=== PATIENT | female | born 1955 | race Caucasian/White ===

== ENCOUNTER 2018-05-03 15:34 | Emergency (ER) | payer MEDICAID ==
[~2018-05-03] VITALS: Ht 152.4 cm; Wt 52.7 kg
[2018-05-03 15:44] VITALS: BP 162/92
[2018-05-03] MEDS ORDERED: albuterol 2.5 MG/3 ML nebule NEB STA (17:31)
--- NOTE | 2018-05-03 17:32 | NUR ---
PAGED RT FOR BREATHING TX.
[2018-05-03] MEDS ORDERED: ALBU8HFA PO (17:43)
[2018-05-03] MEDS ORDERED: albuterol 2.5 MG/3 ML nebule NEB ONE (19:05)
--- NOTE | 2018-05-03 19:25 | NUR ---
PT DC'D HOME, WHEEZES BILATERALLY, "I FEEL MUCH BETTER AND AM READY TO GO HOME",
== END 2018-05-03 19:29 | disposition home or self-care (01) ==
LOC: ER 15:34
DX: J02.9 Acute pharyngitis, unspecified (principal); J32.9 Chronic sinusitis, unspecified; I25.10 Atherosclerotic heart disease of native coronary artery without angina pectoris; J45.909 Unspecified asthma, uncomplicated; Z88.1 Allergy status to other antibiotic agents; Z88.5 Allergy status to narcotic agent; Z91.018 Allergy to other foods; Z91.011 Allergy to milk products; Z88.8 Allergy status to other drugs, medicaments and biological substances; Z79.899 Other long term (current) drug therapy; Z87.891 Personal history of nicotine dependence
CPT/HCPCS: 94640; 94760; 99283

== ENCOUNTER 2018-07-23 13:01 | Emergency (ER) | payer MEDICAID ==
[~2018-07-23] VITALS: Ht 154.9 cm; Wt 53.0 kg
[2018-07-23] MEDS ORDERED: LIDOcaine 1% w/epiNEPHrine 1:200,000 30ml vial IM ONE (19:05)
[2018-07-23] MEDS ORDERED: LIDOcaine/epinephrine TOPICAL 5 ML BTL TOP ONE (19:30)
--- NOTE | 2018-07-23 19:54 | NUR ---
LET APPLIED TO ABSCESS LEFT LABIA
[2018-07-23] MEDS ORDERED: HYDROcodone/acetaminophen 10/325mg tab PO ONE (21:40)
[2018-07-23] MEDS ORDERED: sulfamethoxazole/trimethoprim DS (800/160mg) tablet PO ONE (21:40)
[2018-07-23] MEDS ORDERED: HYDR-4353 PO (21:42)
[2018-07-23] MEDS ORDERED: SULF1TAB49 PO (21:42)
[2018-07-23 21:46] VITALS: BP 147/99
== END 2018-07-23 21:57 | disposition home or self-care (01) ==
LOC: ER 13:01
DX: N76.4 Abscess of vulva (principal); I10 Essential (primary) hypertension; I25.10 Atherosclerotic heart disease of native coronary artery without angina pectoris; J45.909 Unspecified asthma, uncomplicated; E03.9 Hypothyroidism, unspecified; Z88.8 Allergy status to other drugs, medicaments and biological substances; Z88.1 Allergy status to other antibiotic agents; Z88.6 Allergy status to analgesic agent; Z91.018 Allergy to other foods; Z79.899 Other long term (current) drug therapy; Z91.011 Allergy to milk products
CPT/HCPCS: 56405; 99284; J3490

== ENCOUNTER 2020-12-12 15:54 | Emergency (ER) | payer MEDICAID ==
[~2020-12-12] VITALS: Ht 152.4 cm; Wt 53.6 kg
[2020-12-12] MEDS ORDERED: ketorolac tromethamine 15mg/ml inj. IV ONE (18:50)
[2020-12-12] MEDS ORDERED: HYDROcodone/acetaminophen 5mg/325mg tablet PO ONE (18:50)
[2020-12-12] MEDS ORDERED: IBUP-1984 PO (19:31)
[2020-12-12 20:09] VITALS: BP 140/71
== END 2020-12-12 20:10 | disposition home or self-care (01) ==
LOC: ER 15:55
DX: M25.552 Pain in left hip (principal); M54.9 Dorsalgia, unspecified; I25.10 Atherosclerotic heart disease of native coronary artery without angina pectoris; I10 Essential (primary) hypertension; J45.909 Unspecified asthma, uncomplicated; E03.9 Hypothyroidism, unspecified; Z91.011 Allergy to milk products; Z88.1 Allergy status to other antibiotic agents; Z88.5 Allergy status to narcotic agent; Z91.018 Allergy to other foods; Z88.8 Allergy status to other drugs, medicaments and biological substances
CPT/HCPCS: 72131; 72192; 73502; 73552; 96374; 99285; J1885

== ENCOUNTER → 2020-12-23 | Emergency (ER) | payer MEDICAID ==
[~2020-12-23] VITALS: Ht 152.4 cm; Wt 53.6 kg
[~2020-12-23] MED LIST: SULF1TAB49 PO
[2020-12-23 18:00] VITALS: BP 126/100
--- NOTE | 2020-12-23 19:05 | NUR ---
PT SEEN AND DC'D BY PROVIDER PRIOR TO HEAD TO TOE ASSESSMENT. SAFE DC
== END | disposition home or self-care (01) ==
LOC: ER 17:44
DX: L03.116 Cellulitis of left lower limb (principal); I25.10 Atherosclerotic heart disease of native coronary artery without angina pectoris; I10 Essential (primary) hypertension; J45.909 Unspecified asthma, uncomplicated; E03.9 Hypothyroidism, unspecified; Z88.8 Allergy status to other drugs, medicaments and biological substances; Z88.1 Allergy status to other antibiotic agents; Z88.5 Allergy status to narcotic agent; Z91.018 Allergy to other foods; Z79.899 Other long term (current) drug therapy
CPT/HCPCS: 99283

== ENCOUNTER 2021-09-01 22:27 | Emergency (ER) | payer MEDICAID ==
[~2021-09-01] VITALS: Ht 152.4 cm; Wt 45.9 kg
[2021-09-01 23:04] LABS: BASOPHILS % (AUTO) 0.2 % (0-1); EOSINOPHILS # (AUTO) 0.2 X10'3 (0-0.9); EOSINOPHILS % (AUTO) 1.9 % (0-6); HEMATOCRIT 34.6 % (35.0-45.0); HEMOGLOBIN 12.3 g/dl (12.0-16.0); LYMPHOCYTES # (AUTO) 1.2 X10'3 (1.1-4.8); LYMPHOCYTES % (AUTO) 14.4 % (21-51); MEAN CORPUSCULAR HEMOGLOBIN 37.2 PG (27.0-31.0); MEAN CORPUSCULAR HGB CONC 35.5 g/dL (33.0-36.5); MEAN CORPUSCULAR VOLUME 104.5 FL (78-98); MEAN PLATELET VOLUME 7.1 FL (7.4-10.4); MONOCYTES # (AUTO) 0.3 X10'3 (0-0.9); MONOCYTES % (AUTO) 3.8 % (2-12); NEUTROPHILS # (AUTO) 6.5 X10'3 (1.8-7.7); NEUTROPHILS % (AUTO) 79.7 % (42-75); PLATELET COUNT 306 X10'3 (140-440); RED BLOOD COUNT 3.31 X10'6 (4.20-5.60); RED CELL DISTRIBUTION WIDTH 16.4 % (11.5-14.5); WHITE BLOOD COUNT 8.1 X10'3 (4.5-11.0)
[2021-09-01 23:22] LABS: ALANINE AMINOTRANSFERASE 14 U/L (12-78); ALBUMIN 3.8 G/DL (3.4-5.0); ALBUMIN/GLOBULIN RATIO 0.9 (1.1-1.5); ALKALINE PHOSPHATASE 132 IU/L (46-116); ANION GAP 10 (8-16); ASPARTATE AMINO TRANSFERASE 16 U/L (10-37); BILIRUBIN,TOTAL 0.9 MG/DL (0.1-1.0); BLOOD UREA NITROGEN 16 MG/DL (7-18); BUN/CREATININE RATIO 15.1 (6.6-38.0); CALCIUM 9.1 MG/DL (8.5-10.1); CHLORIDE 102 MMOL/L (99-107); CREATININE 1.06 MG/DL (0.40-0.90); GLUCOSE 103 MG/DL (70-104); POTASSIUM 3.3 MMOL/L (3.5-5.1); SODIUM 138 MMOL/L (135-145); TOTAL CARBON DIOXIDE 25.6 MMOL/L (24-32); eGFR 52 ML/MIN
[2021-09-02 00:56] LABS: D-DIMER 1.42 MG/L FEU (0-0.50)
[2021-09-02] MEDS ORDERED: acetaminophen 325mg tablet PO ONE (01:10)
[2021-09-02] MEDS ORDERED: iohexol 300mg/ml 100ml inj. ONE (01:15)
[2021-09-02 05:12] VITALS: BP 114/67
== END 2021-09-02 06:51 | disposition home or self-care (01) ==
LOC: ER 22:28
DX: R06.02 Shortness of breath (principal); Z20.822 Contact with and (suspected) exposure to COVID-19; R07.89 Other chest pain; I25.10 Atherosclerotic heart disease of native coronary artery without angina pectoris; I10 Essential (primary) hypertension; J42 Unspecified chronic bronchitis; J45.909 Unspecified asthma, uncomplicated; E03.9 Hypothyroidism, unspecified; Z88.8 Allergy status to other drugs, medicaments and biological substances; Z88.2 Allergy status to sulfonamides; Z88.5 Allergy status to narcotic agent; Z91.018 Allergy to other foods; Z91.011 Allergy to milk products
CPT/HCPCS: 36415; 71045; 71275; 80053; 83880; 84484; 85025; 85379; 87502; 87503; 87635; 93005; 99285; C9803; Q9967

== ENCOUNTER 2021-11-16 08:25 | Outpatient (CLI) | payer MEDICAID ==
[~2021-11-16] VITALS: Ht 152.4 cm; Wt 49.4 kg
[2021-11-16 09:04] LABS: TOTAL HEMOGLOBIN 14.8 G/dl (12.0-16.0)
[2021-11-16] MEDS ORDERED: albuterol 2.5 MG/3 ML nebule NEB PRN (09:55)
== END 2021-11-16 23:59 | disposition home or self-care (01) ==
LOC: RT 08:25
PROVIDERS: ATTEND Nurse Practitioner Family
DX: R06.02 Shortness of breath (principal); Z87.891 Personal history of nicotine dependence; Z79.899 Other long term (current) drug therapy
CPT/HCPCS: 85018; 94060; 94727; 94729; 94760

== ENCOUNTER 2023-03-07 17:02 | Emergency (ER) | payer OTHER, MEDICAID ==
[~2023-03-07] VITALS: Ht 149.9 cm; Wt 57.3 kg
[~2023-03-07 17:02] MED LIST changes: +ALBU17AE26 PO; +BUDE10.26 PO; +ESCI-8 PO; +HYOS-27 SL; +IBUP-2697 PO; +LEVO75TA7 PO; +LOSA25TA41 PO; -SULF1TAB49 PO
[2023-03-07 17:10] VITALS: TEMP 97.9
[2023-03-07] MEDS ORDERED: albuterol 2.5 MG/3 ML nebule NEB ONE (17:15)
--- NOTE | 2023-03-07 17:27 | NUR ---
RT AT BEDSIDE TO ADMINISTER BREATHING TREATMENT PER MD ORDER (SEE EMAR).
[2023-03-07 17:28] VITALS: PULSE 94; RESP 22; O2SAT 97
[2023-03-07 17:36] VITALS: PULSE 101; RESP 24; O2SAT 98
[2023-03-07 18:29] LABS: BASOPHILS % (AUTO) 0.7 % (0-1); EOSINOPHILS # (AUTO) 0.1 X10'3 (0-0.9); EOSINOPHILS % (AUTO) 1.4 % (0-6); HEMATOCRIT 35.6 % (35.0-45.0); HEMOGLOBIN 12.2 g/dl (12.0-16.0); LYMPHOCYTES # (AUTO) 1.3 X10'3 (1.1-4.8); MEAN CORPUSCULAR HEMOGLOBIN 34.3 PG (27.0-31.0); MEAN CORPUSCULAR HGB CONC 34.4 g/dL (33.0-36.5); MEAN CORPUSCULAR VOLUME 99.6 FL (78-98); MEAN PLATELET VOLUME 6.6 FL (7.4-10.4); MONOCYTES # (AUTO) 0.2 X10'3 (0-0.9); NEUTROPHILS % (AUTO) 74.9 % (42-75); PLATELET COUNT 417 X10'3 (140-440); RED BLOOD COUNT 3.57 X10'6 (4.20-5.60); RED CELL DISTRIBUTION WIDTH 20.3 % (11.5-14.5); WHITE BLOOD COUNT 6.6 X10'3 (4.5-11.0)
[2023-03-07 18:30] LABS: ALANINE AMINOTRANSFERASE 16 U/L (12-78); ALBUMIN 3.5 G/DL (3.4-5.0); ALBUMIN/GLOBULIN RATIO 0.8 (1.1-1.5); ALKALINE PHOSPHATASE 143 IU/L (46-116); ANION GAP 11 (8-16); ASPARTATE AMINO TRANSFERASE 14 U/L (10-37); BILIRUBIN,TOTAL 0.8 MG/DL (0.1-1.0); BLOOD UREA NITROGEN 12 MG/DL (7-18); BUN/CREATININE RATIO 10.6 (10.0-20.0); CHLORIDE 102 MMOL/L (99-107); CREATININE 1.13 MG/DL (0.40-0.90); GLUCOSE 95 MG/DL (70-104); POTASSIUM 3.7 MMOL/L (3.5-5.1); SODIUM 137 MMOL/L (135-145); TOTAL PROTEIN 7.8 G/DL (6.4-8.2); eCRCL 34 ML/MIN; eGFR 48 ML/MIN
[2023-03-07 18:59] LABS: ANISOCYTOSIS 3+; PLATELET ESTIMATE NORMAL
[2023-03-07] MEDS ORDERED: ringers solution, lactated 1000ml IV soln IV ONE (19:15)
[2023-03-07] MEDS ORDERED: iohexol 350MG/ML 100ml bottle IV ONE (19:41)
[2023-03-07 21:21] LABS: BILIRUBIN,URINE NEGATIVE (Neg); CLARITY,URINE SLIGHTLY CLOUDY (Clear); COLOR,URINE YELLOW (Yellow); GLUCOSE, URINE NEGATIVE (Neg); KETONES,URINE NEGATIVE (Neg); LEUKOCYTE ESTERASE ,URINE NEGATIVE (Neg); NITRITES, URINE NEGATIVE (Neg); OCCULT BLOOD,URINE NEGATIVE (Neg); PROTEIN,URINE NEGATIVE (Neg)
[2023-03-07 21:33] LABS: UA COLLECTION TYPE CLN CATCH MIDSTREAM
[2023-03-07 21:35] LABS: BACTERIA,URINE FEW /HPF (Neg); MUCUS STRANDS NONE SEEN /LPF (Neg); RBC,URINE 0-2 /HPF (0-2); SQUAMOUS EPITHELIAL CELL,UR FEW /LPF (FEW); WBC,URINE 0-4 /HPF (0-4)
[2023-03-07 23:12] VITALS: BP 124/72; PULSE 80; RESP 16; O2SAT 92
== END 2023-03-07 23:16 | disposition home or self-care (01) ==
LOC: ER 17:02
DX: J44.1 Chronic obstructive pulmonary disease with (acute) exacerbation (principal); I11.0 Hypertensive heart disease with heart failure; E03.9 Hypothyroidism, unspecified; F32.A Depression, unspecified; Z91.040 Latex allergy status; Z88.8 Allergy status to other drugs, medicaments and biological substances; Z79.899 Other long term (current) drug therapy; Z88.1 Allergy status to other antibiotic agents
CPT/HCPCS: 36415; 71045; 71275; 74177; 80053; 81001; 83605; 84145; 85008; 85025; 87040; 93005; 94640; 96360; 99285; J3490; J7120; Q9967; 94760; A4615

== ENCOUNTER 2023-03-22 08:31 | Inpatient (IN) | payer OTHER, MEDICAID ==
[~2023-03-22] VITALS: Ht 149.9 cm; Wt 54.9 kg
[2023-03-22 09:12] LABS: ALANINE AMINOTRANSFERASE 22 U/L (12-78); ALBUMIN 3.5 G/DL (3.4-5.0); ALBUMIN/GLOBULIN RATIO 0.9 (1.1-1.5); ALKALINE PHOSPHATASE 130 IU/L (46-116); ANION GAP 8 (8-16); ASPARTATE AMINO TRANSFERASE 22 U/L (10-37); BILIRUBIN,TOTAL 0.9 MG/DL (0.1-1.0); BLOOD UREA NITROGEN 10 MG/DL (7-18); BUN/CREATININE RATIO 11.4 (10.0-20.0); CHLORIDE 105 MMOL/L (99-107); CREATININE 0.88 MG/DL (0.40-0.90); GLUCOSE 112 MG/DL (70-104); SODIUM 137 MMOL/L (135-145); TOTAL CARBON DIOXIDE 23.7 MMOL/L (24-32); TOTAL PROTEIN 7.2 G/DL (6.4-8.2); eCRCL 43 ML/MIN; eGFR 64 ML/MIN
[2023-03-22 09:19] LABS: PRO BRAIN NATRIURETIC PEPTIDE 104 PG/ML (0-125)
[2023-03-22] MEDS ORDERED: ketorolac trometh. 30mg/ml inj. IM ONE (09:40)
[2023-03-22 10:53] LABS: D-DIMER 7.51 MG/L FEU (0-0.50)
[2023-03-22 11:07] LABS: PRO BRAIN NATRIURETIC PEPTIDE 126 PG/ML (0-125)
[2023-03-22 11:43] LABS: BASOPHILS % (AUTO) 0.3 % (0-1); EOSINOPHILS # (AUTO) 0.1 X10'3 (0-0.9); EOSINOPHILS % (AUTO) 0.8 % (0-6); HEMOGLOBIN 11.5 g/dl (12.0-16.0); LYMPHOCYTES # (AUTO) 0.7 X10'3 (1.1-4.8); LYMPHOCYTES % (AUTO) 7.7 % (21-51); MEAN CORPUSCULAR HEMOGLOBIN 34.6 PG (27.0-31.0); MEAN CORPUSCULAR HGB CONC 33.9 g/dL (33.0-36.5); MEAN CORPUSCULAR VOLUME 102.1 FL (78-98); MEAN PLATELET VOLUME 6.8 FL (7.4-10.4); MONOCYTES # (AUTO) 0.3 X10'3 (0-0.9); MONOCYTES % (AUTO) 2.8 % (2-12); NEUTROPHILS # (AUTO) 7.9 X10'3 (1.8-7.7); NEUTROPHILS % (AUTO) 88.4 % (42-75); PLATELET COUNT 377 X10'3 (140-440); RED BLOOD COUNT 3.33 X10'6 (4.20-5.60); RED CELL DISTRIBUTION WIDTH 21.9 % (11.5-14.5); WHITE BLOOD COUNT 8.9 X10'3 (4.5-11.0)
[2023-03-22] MEDS ORDERED: normal saline 500ml IV soln 500 ML IV ONE (12:00)
[2023-03-22] MEDS ORDERED: iohexol 350MG/ML 100ml bottle IV ONE (12:19)
[2023-03-22 12:38] LABS: ANISOCYTOSIS 3+; PLATELET ESTIMATE NORMAL; ROULEAUX 1+
[2023-03-22] MEDS ORDERED: enoxaparin 100mg/ml syringe SUBCUT ONE (14:25)
[2023-03-22] MEDS ORDERED: magnesium 4gm in 100ml NS 100 ML IV PRN (14:30)
[2023-03-22] MEDS ORDERED: magnesium Cl slow-release 64mg tablet PO PRN (14:30)
[2023-03-22] MEDS ORDERED: potassium Cl 20 mEq SR tablet PO PRN (14:30)
[2023-03-22] MEDS ORDERED: magnesium 2GM in 50ml NS 50 ML IV PRN (14:30)
[2023-03-22] MEDS ORDERED: potassium Cl 40MEQ/1/2NS 520ml 520 ML IV PRN (14:30)
[2023-03-22] MEDS ORDERED: acetaminophen 325mg tablet PO PRN ×2 (14:30)
[2023-03-22] MEDS ORDERED: heparin 10,000 units/1 ML INJ IV ONE (14:40)
[2023-03-22] MEDS: heparin 25,000 UNIT/250ml bag 250 ML IV PRN (15:36)
[2023-03-22] MEDS: normal saline 1000ml 1,000 ML IV SCH (15:38)
[2023-03-22] MEDS ORDERED: albuterol 2.5 MG/3 ML nebule NEB PRN (15:55)
[2023-03-22] MEDS: methylPREDNISolone sod succ/PF 40mg inj. IV SCH (19:29)
[2023-03-22] MEDS ORDERED: ALEN70TA80 PO (19:35)
[2023-03-22] MEDS ORDERED: LEVO50TA8 PO (19:35)
[2023-03-22] MEDS ORDERED: guaiFENesin 200 MG/10 ML oral syrup UD cup PO ONE (19:40)
[2023-03-22] MEDS ORDERED: ipratropium/albuterol 3ml nebule NEB PRN (19:40)
[2023-03-22] MEDS: HYDROcodone/acetaminophen 5mg/325mg tablet PO PRN (20:26)
[2023-03-22 21:10] VITALS: PULSE 92; RESP 16; O2SAT 92
[2023-03-22 21:17] VITALS: PULSE 94; RESP 16
[2023-03-22 21:40] VITALS: BP 133/67; PULSE 102; RESP 20; TEMP 97.2; O2SAT 95
[2023-03-22 23:00] VITALS: RESP 20; O2SAT 95
[2023-03-23] VITALS (9 sets, daily range): BP systolic 93–151; BP diastolic 42–86; PULSE 57–100; RESP 11–18; TEMP 97–99.1; O2SAT 93–97
[2023-03-23] MEDS: HYDROcodone/acetaminophen 5mg/325mg tablet PO PRN ×2 (05:50→17:13)
[2023-03-23 07:28] LABS: BASOPHILS % (AUTO) 0.2 % (0-1); EOSINOPHILS % (AUTO) 0 % (0-6); HEMATOCRIT 31.1 % (35.0-45.0); HEMOGLOBIN 10.5 g/dl (12.0-16.0); LYMPHOCYTES # (AUTO) 0.7 X10'3 (1.1-4.8); LYMPHOCYTES % (AUTO) 4.9 % (21-51); MEAN CORPUSCULAR HEMOGLOBIN 34.7 PG (27.0-31.0); MEAN CORPUSCULAR HGB CONC 33.7 g/dL (33.0-36.5); MEAN CORPUSCULAR VOLUME 102.8 FL (78-98); MEAN PLATELET VOLUME 7.1 FL (7.4-10.4); MONOCYTES # (AUTO) 0.1 X10'3 (0-0.9); MONOCYTES % (AUTO) 0.7 % (2-12); NEUTROPHILS # (AUTO) 12.7 X10'3 (1.8-7.7); NEUTROPHILS % (AUTO) 94.2 % (42-75); PLATELET COUNT 366 X10'3 (140-440); RED BLOOD COUNT 3.03 X10'6 (4.20-5.60); RED CELL DISTRIBUTION WIDTH 22.1 % (11.5-14.5); WHITE BLOOD COUNT 13.4 X10'3 (4.5-11.0)
[2023-03-23 07:53] LABS: ALANINE AMINOTRANSFERASE 20 U/L (12-78); ALBUMIN/GLOBULIN RATIO 0.8 (1.1-1.5); ALKALINE PHOSPHATASE 123 IU/L (46-116); ANION GAP 9 (8-16); ASPARTATE AMINO TRANSFERASE 17 U/L (10-37); BILIRUBIN,TOTAL 0.7 MG/DL (0.1-1.0); BLOOD UREA NITROGEN 13 MG/DL (7-18); BUN/CREATININE RATIO 13.8 (10.0-20.0); CALCIUM 8.6 MG/DL (8.5-10.1); CHLORIDE 104 MMOL/L (99-107); CREATININE 0.94 MG/DL (0.40-0.90); GLUCOSE 161 MG/DL (70-104); POTASSIUM 3.6 MMOL/L (3.5-5.1); SODIUM 137 MMOL/L (135-145); TOTAL CARBON DIOXIDE 24.5 MMOL/L (24-32); TOTAL PROTEIN 6.9 G/DL (6.4-8.2); eCRCL 40 ML/MIN; eGFR 60 ML/MIN
[2023-03-23] MEDS: methylPREDNISolone sod succ/PF 40mg inj. IV SCH ×2 (07:59→20:18)
[2023-03-23] MEDS ORDERED: HYDROcodone/acetaminophen 10/325mg tab PO PRN (09:15)
[2023-03-23] MEDS ORDERED: non-formulary drug (Alendronate Sodium 1 TAB) PO SCH (15:25)
[2023-03-23] MEDS: heparin 25,000 UNIT/250ml bag 250 ML IV PRN (17:10)
[2023-03-24] VITALS (10 sets, daily range): BP systolic 111–141; BP diastolic 61–74; PULSE 64–79; RESP 12–18; TEMP 97.5–98.4; O2SAT 93–97
[2023-03-24] MEDS: heparin 10,000 units/1 ML INJ IV PRN ×2 (00:03→17:31)
[2023-03-24 06:46] LABS: BASOPHILS % (AUTO) 0 % (0-1); EOSINOPHILS % (AUTO) 0 % (0-6); HEMATOCRIT 29.3 % (35.0-45.0); HEMOGLOBIN 9.8 g/dl (12.0-16.0); LYMPHOCYTES # (AUTO) 0.6 X10'3 (1.1-4.8); LYMPHOCYTES % (AUTO) 3.1 % (21-51); MEAN CORPUSCULAR HEMOGLOBIN 34.3 PG (27.0-31.0); MEAN CORPUSCULAR HGB CONC 33.4 g/dL (33.0-36.5); MEAN CORPUSCULAR VOLUME 102.6 FL (78-98); MEAN PLATELET VOLUME 7.4 FL (7.4-10.4); MONOCYTES # (AUTO) 0.3 X10'3 (0-0.9); MONOCYTES % (AUTO) 1.5 % (2-12); NEUTROPHILS # (AUTO) 17.8 X10'3 (1.8-7.7); NEUTROPHILS % (AUTO) 95.4 % (42-75); PLATELET COUNT 404 X10'3 (140-440); RED BLOOD COUNT 2.86 X10'6 (4.20-5.60); RED CELL DISTRIBUTION WIDTH 22.3 % (11.5-14.5); WHITE BLOOD COUNT 18.7 X10'3 (4.5-11.0)
[2023-03-24 06:58] LABS: ALANINE AMINOTRANSFERASE 20 U/L (12-78); ALBUMIN 2.7 G/DL (3.4-5.0); ALBUMIN/GLOBULIN RATIO 0.7 (1.1-1.5); ALKALINE PHOSPHATASE 115 IU/L (46-116); ANION GAP 8 (8-16); ASPARTATE AMINO TRANSFERASE 23 U/L (10-37); BILIRUBIN,TOTAL 0.3 MG/DL (0.1-1.0); BLOOD UREA NITROGEN 17 MG/DL (7-18); BUN/CREATININE RATIO 18.7 (10.0-20.0); CALCIUM 8.8 MG/DL (8.5-10.1); CHLORIDE 106 MMOL/L (99-107); CREATININE 0.91 MG/DL (0.40-0.90); GLUCOSE 139 MG/DL (70-104); POTASSIUM 3.6 MMOL/L (3.5-5.1); SODIUM 139 MMOL/L (135-145); TOTAL CARBON DIOXIDE 24.9 MMOL/L (24-32); TOTAL PROTEIN 6.7 G/DL (6.4-8.2); eCRCL 41 ML/MIN; eGFR 62 ML/MIN
[2023-03-24 08:00] LABS: TOTAL CELLS COUNTED 100
[2023-03-24 08:01] LABS: ANISOCYTOSIS 3+; BURR CELLS 5; ELLIPTOCYTES FEW; HYPERSEGMENTED NEUTROPHILS 2+; PLATELET ESTIMATE NORMAL
[2023-03-24] MEDS: ESCITALOPRAM 10 mg tablet 10 MG TABLET PO SCH (08:54)
[2023-03-24] MEDS: levoTHYROXINE 25mcg tablet PO SCH (08:55)
[2023-03-24] MEDS: losartan 25mg tablet PO SCH (08:55)
[2023-03-24] MEDS: methylPREDNISolone sod succ/PF 40mg inj. IV SCH ×2 (08:55→17:51)
[2023-03-24] MEDS: normal saline 1000ml 1,000 ML IV SCH (14:30)
[2023-03-24] MEDS: HYDROcodone/acetaminophen 5mg/325mg tablet PO PRN (16:36)
[2023-03-24] MEDS: docusate sodium 100mg/10ml UD cup PO SCH (19:58)
[2023-03-25] MEDS: mag hydrox/Alum hydrox/simeth 30ml oral suspension PO PRN ×2 (01:18→08:14)
[2023-03-25] MEDS: heparin 25,000 UNIT/250ml bag 250 ML IV PRN (01:23)
[2023-03-25] MEDS: HYDROcodone/acetaminophen 5mg/325mg tablet PO PRN ×2 (01:43→08:14)
[2023-03-25 02:00] VITALS: BP 149/86; PULSE 71; RESP 18; TEMP 99.1; O2SAT 95
[2023-03-25 07:00] VITALS: BP 132/76; PULSE 62; RESP 16; TEMP 97.1; O2SAT 96
[2023-03-25 08:00] VITALS: RESP 16; O2SAT 96
[2023-03-25] MEDS: methylPREDNISolone sod succ/PF 40mg inj. IV SCH (08:12)
[2023-03-25 08:13] LABS: BASOPHILS % (AUTO) 0 % (0-1); EOSINOPHILS % (AUTO) 0 % (0-6); HEMATOCRIT 25.9 % (35.0-45.0); HEMOGLOBIN 8.8 g/dl (12.0-16.0); LYMPHOCYTES # (AUTO) 0.6 X10'3 (1.1-4.8); LYMPHOCYTES % (AUTO) 4.9 % (21-51); MEAN CORPUSCULAR HEMOGLOBIN 35.3 PG (27.0-31.0); MEAN CORPUSCULAR VOLUME 103.8 FL (78-98); MEAN PLATELET VOLUME 7.1 FL (7.4-10.4); MONOCYTES # (AUTO) 0.3 X10'3 (0-0.9); MONOCYTES % (AUTO) 2.5 % (2-12); NEUTROPHILS # (AUTO) 11.5 X10'3 (1.8-7.7); NEUTROPHILS % (AUTO) 92.6 % (42-75); PLATELET COUNT 336 X10'3 (140-440); RED CELL DISTRIBUTION WIDTH 22.6 % (11.5-14.5); WHITE BLOOD COUNT 12.4 X10'3 (4.5-11.0)
[2023-03-25] MEDS: losartan 25mg tablet PO SCH (08:13)
[2023-03-25] MEDS: ESCITALOPRAM 10 mg tablet 10 MG TABLET PO SCH (08:13)
[2023-03-25] MEDS: levoTHYROXINE 25mcg tablet PO SCH (08:14)
[2023-03-25] MEDS: docusate sodium 100mg/10ml UD cup PO SCH (08:14)
[2023-03-25 08:26] LABS: ALANINE AMINOTRANSFERASE 28 U/L (12-78); ALBUMIN 2.4 G/DL (3.4-5.0); ALBUMIN/GLOBULIN RATIO 0.7 (1.1-1.5); ALKALINE PHOSPHATASE 127 IU/L (46-116); ANION GAP 4 (8-16); ASPARTATE AMINO TRANSFERASE 28 U/L (10-37); BILIRUBIN,TOTAL 0.2 MG/DL (0.1-1.0); BLOOD UREA NITROGEN 22 MG/DL (7-18); BUN/CREATININE RATIO 21.8 (10.0-20.0); CALCIUM 8.4 MG/DL (8.5-10.1); CHLORIDE 109 MMOL/L (99-107); CREATININE 1.01 MG/DL (0.40-0.90); GLUCOSE 144 MG/DL (70-104); POTASSIUM 3.9 MMOL/L (3.5-5.1); SODIUM 142 MMOL/L (135-145); TOTAL CARBON DIOXIDE 28.7 MMOL/L (24-32); TOTAL PROTEIN 5.9 G/DL (6.4-8.2); eCRCL 37 ML/MIN; eGFR 55 ML/MIN
[2023-03-25 08:53] VITALS: PULSE 65; RESP 16; O2SAT 95
[2023-03-25 08:57] LABS: ANISOCYTOSIS 3+; HYPERSEGMENTED NEUTROPHILS 3+; PLATELET ESTIMATE NORMAL; TOTAL CELLS COUNTED 100
[2023-03-25 08:58] LABS: ELLIPTOCYTES FEW; POLYCHROMASIA FEW; TOXIC GRANULATION 1+
[2023-03-25] MEDS ORDERED: ACET-1008 PO ×2 (09:43)
[2023-03-25] MEDS ORDERED: LEVO-65 PO ×2 (09:43)
[2023-03-25 10:00] VITALS: BP 160/80; PULSE 77; RESP 16; TEMP 97.9; O2SAT 94
[2023-03-25] MEDS ORDERED: APIX5TAB3 PO ×2 (12:15)
[2023-03-25 12:42] LABS: THYROID STIMULATING HORMONE 1.77 ulU/ml (0.34-4.50)
[2023-03-28] MEDS ORDERED: APIX5TAB3 PO (12:56)
[2023-03-29] MEDS ORDERED: HYDR-3965 PO (10:16)
[2023-03-29] MEDS ORDERED: APIX5TAB3 PO (14:21)
== END 2023-03-25 14:41 | disposition home or self-care (01) | DRG 176 ==
LOC: ER 08:31 → ED HOLD 14:37 → EDBEDREQ 20:51 → PCU 3S 21:30
PROVIDERS: ADMIT Internal Medicine; ATTEND Internal Medicine
PROC: B32T1ZZ Computerized Tomography (CT Scan) of Left Pulmonary Artery using Low Osmolar Contrast (ICD-10-PCS; principal; 2023-03-22)
PROC: B3201ZZ Computerized Tomography (CT Scan) of Thoracic Aorta using Low Osmolar Contrast (ICD-10-PCS; 2023-03-22)
PROC: B32S1ZZ Computerized Tomography (CT Scan) of Right Pulmonary Artery using Low Osmolar Contrast (ICD-10-PCS; 2023-03-22)
DX: I26.99 Other pulmonary embolism without acute cor pulmonale (principal); E03.9 Hypothyroidism, unspecified; E78.00 Pure hypercholesterolemia, unspecified; I10 Essential (primary) hypertension; I25.10 Atherosclerotic heart disease of native coronary artery without angina pectoris; R09.1 Pleurisy; Z20.822 Contact with and (suspected) exposure to COVID-19; J44.9 Chronic obstructive pulmonary disease, unspecified; E78.5 Hyperlipidemia, unspecified; R79.89 Other specified abnormal findings of blood chemistry; Z79.899 Other long term (current) drug therapy; Z79.01 Long term (current) use of anticoagulants; Z82.49 Family history of ischemic heart disease and other diseases of the circulatory system; Z90.710 Acquired absence of both cervix and uterus; Z91.018 Allergy to other foods
CPT/HCPCS: 36415; 71045; 71275; 80053; 83880; 84145; 84443; 84484; 85007; 85008; 85025; 85379; 85651; 85730; 87081; 87811; 93306; 93970; 94640; 94760; 97116; 97161; 97530; 99285; J1644; J1885; J2920; J3490; J7030; J7040; Q9967

== ENCOUNTER 2023-12-17 12:26 | Outpatient (CLI) | payer BC, MEDICAID ==
[~2023-12-17 12:26] MED LIST changes: +ALEN70TA80 PO; +APIX5TAB3 PO; -HYOS-27 SL; -IBUP-2697 PO; +LEVO50TA8 PO; -LEVO75TA7 PO
== END 2023-12-17 23:59 | disposition home or self-care (01) ==
LOC: RAD 12:26
PROVIDERS: ATTEND Specialist
DX: M19.011 Primary osteoarthritis, right shoulder (principal); M25.511 Pain in right shoulder; M06.9 Rheumatoid arthritis, unspecified; M25.811 Other specified joint disorders, right shoulder
CPT/HCPCS: 73200

== ENCOUNTER 2024-01-29 10:14 | Emergency (ER) | payer BC, MEDICAID ==
[~2024-01-29] VITALS: Ht 149.9 cm; Wt 58.0 kg
[2024-01-29 10:18] VITALS: TEMP 97.7
[2024-01-29 10:55] LABS: BASOPHILS % (AUTO) 0.7 % (0-1); EOSINOPHILS # (AUTO) 0.3 X10'3 (0-0.9); EOSINOPHILS % (AUTO) 4.9 % (0-6); HEMATOCRIT 37.4 % (35.0-45.0); HEMOGLOBIN 12.2 g/dl (12.0-16.0); LYMPHOCYTES # (AUTO) 1.4 X10'3 (1.1-4.8); LYMPHOCYTES % (AUTO) 22.3 % (21-51); MEAN CORPUSCULAR HEMOGLOBIN 29.2 PG (27.0-31.0); MEAN CORPUSCULAR HGB CONC 32.7 g/dL (33.0-36.5); MEAN CORPUSCULAR VOLUME 89.3 FL (78-98); MEAN PLATELET VOLUME 6.7 FL (7.4-10.4); MONOCYTES # (AUTO) 0.5 X10'3 (0-0.9); MONOCYTES % (AUTO) 7.3 % (2-12); NEUTROPHILS # (AUTO) 4.1 X10'3 (1.8-7.7); NEUTROPHILS % (AUTO) 64.8 % (42-75); PLATELET COUNT 407 X10'3 (140-440); RED BLOOD COUNT 4.18 X10'6 (4.20-5.60); RED CELL DISTRIBUTION WIDTH 18.4 % (11.5-14.5); WHITE BLOOD COUNT 6.3 X10'3 (4.5-11.0)
[2024-01-29 11:10] LABS: ALANINE AMINOTRANSFERASE 25 U/L (12-78); ALBUMIN 3.3 G/DL (3.4-5.0); ALBUMIN/GLOBULIN RATIO 0.8 (1.1-1.5); ALKALINE PHOSPHATASE 158 IU/L (46-116); ANION GAP 7 (8-16); ASPARTATE AMINO TRANSFERASE 21 U/L (10-37); BILIRUBIN,TOTAL 0.4 MG/DL (0.1-1.0); BLOOD UREA NITROGEN 10 MG/DL (7-18); BUN/CREATININE RATIO 11.5 (10.0-20.0); CALCIUM 8.4 MG/DL (8.5-10.1); CHLORIDE 106 MMOL/L (99-107); CREATININE 0.87 MG/DL (0.40-0.90); GLUCOSE 99 MG/DL (70-104); LIPASE 61 U/L (16-77); POTASSIUM 3.8 MMOL/L (3.5-5.1); SODIUM 140 MMOL/L (135-145); TOTAL CARBON DIOXIDE 26.9 MMOL/L (24-32); TOTAL PROTEIN 7.4 G/DL (6.4-8.2); eCRCL 43 ML/MIN; eGFR 65 ML/MIN
[2024-01-29 12:47] LABS: BILIRUBIN,URINE NEGATIVE (Neg); CLARITY,URINE CLEAR (Clear); COLOR,URINE YELLOW (Yellow); GLUCOSE, URINE NEGATIVE (Neg); KETONES,URINE NEGATIVE (Neg); LEUKOCYTE ESTERASE ,URINE NEGATIVE (Neg); NITRITES, URINE NEGATIVE (Neg); OCCULT BLOOD,URINE NEGATIVE (Neg); PH,URINE 6.5 (4.8-8.0); PROTEIN,URINE NEGATIVE (Neg)
[2024-01-29 12:53] LABS: UA COLLECTION TYPE OTHER
[2024-01-29] MEDS: ketorolac trometh 15mg/ml vial 15 MG/ML ML IM ONE (13:14)
[2024-01-29 13:32] VITALS: BP 127/80; PULSE 68; RESP 14; O2SAT 99
[2024-01-30] MEDS ORDERED: HYDR-3965 PO (11:46)
[2024-01-30] MEDS ORDERED: APIX5TAB3 PO (11:46)
[2024-01-30] MEDS ORDERED: OMEP20CA16 PO (11:46)
[2024-01-30] MEDS ORDERED: NITR0.4T51 SL (11:46)
[2024-01-30] MEDS ORDERED: ACET325T55 PO (11:46)
[2024-01-30] MEDS ORDERED: DICY10CA88 PO (11:46)
== END 2024-01-29 13:33 | disposition home or self-care (01) ==
LOC: ER 10:14
DX: M54.50 Low back pain, unspecified (principal); N23 Unspecified renal colic; I25.10 Atherosclerotic heart disease of native coronary artery without angina pectoris; E78.00 Pure hypercholesterolemia, unspecified; I10 Essential (primary) hypertension; J45.909 Unspecified asthma, uncomplicated; J44.9 Chronic obstructive pulmonary disease, unspecified; E03.9 Hypothyroidism, unspecified; F32.A Depression, unspecified; Z90.710 Acquired absence of both cervix and uterus; Z98.890 Other specified postprocedural states; Z98.51 Tubal ligation status; Z88.1 Allergy status to other antibiotic agents; Z88.8 Allergy status to other drugs, medicaments and biological substances; Z91.018 Allergy to other foods; Z79.899 Other long term (current) drug therapy
CPT/HCPCS: 36415; 80053; 81003; 83690; 85025; 96372; 99283; J1885

== ENCOUNTER 2024-02-05 05:27 | Day surgery (SDC) | payer BC, MEDICAID ==
[2024-01-30 11:16] LABS: BASOPHILS # (AUTO) 0.1 X10'3 (0-0.2); BASOPHILS % (AUTO) 1.2 % (0-1); EOSINOPHILS # (AUTO) 0.4 X10'3 (0-0.9); EOSINOPHILS % (AUTO) 6.4 % (0-6); LYMPHOCYTES # (AUTO) 1.3 X10'3 (1.1-4.8); LYMPHOCYTES % (AUTO) 21.7 % (21-51); MEAN CORPUSCULAR HGB CONC 32.7 g/dL (33.0-36.5); MEAN CORPUSCULAR VOLUME 88.7 FL (78-98); MEAN PLATELET VOLUME 6.5 FL (7.4-10.4); MONOCYTES # (AUTO) 0.5 X10'3 (0-0.9); MONOCYTES % (AUTO) 7.6 % (2-12); NEUTROPHILS # (AUTO) 3.8 X10'3 (1.8-7.7); NEUTROPHILS % (AUTO) 63.1 % (42-75); PRE OP HEMATOCRIT 38.1 % (35.0-45.0); PRE OP HEMOGLOBIN 12.4 g/dL (12.0-16.0); PRE OP PLATELET COUNT 361 X10'3 (140-440); PRE OP WHITE BLOOD COUNT 6.1 10'3 (4.8-10.8); RED BLOOD COUNT 4.29 X10'6 (4.20-5.60)
[2024-01-30 11:22] LABS: ALBUMIN 3.1 G/DL (3.4-5.0); ALBUMIN/GLOBULIN RATIO 0.7 (1.1-1.5); ALKALINE PHOSPHATASE 152 IU/L (46-116); BLOOD UREA NITROGEN 12 MG/DL (7-18); BUN/CREATININE RATIO 14.5 (10.0-20.0); CALCIUM 8.5 MG/DL (8.5-10.1); CHLORIDE 104 MMOL/L (99-107); CREATININE 0.83 MG/DL (0.40-0.90); PRE OP ALT 22 U/L (30-65); PRE OP ANION GAP 7 (8-16); PRE OP AST 22 U/L (10-37); PRE OP BILIRUB, TOTAL 0.4 MG/DL (0.0-1.0); PRE OP GLUCOSE 93 MG/DL (70-104); PRE OP POTASSIUM 3.9 MMOL/L (3.4-5.1); PRE OP SODIUM 136 MMOL/L (135-145); TOTAL CARBON DIOXIDE 24.8 MMOL/L (24-32); TOTAL PROTEIN 7.3 G/DL (6.4-8.2); eGFR 69 ML/MIN
[~2024-02-05] VITALS: Ht 149.9 cm; Wt 58.6 kg
[2024-02-05] VITALS (31 sets, daily range): BP systolic 98–183; BP diastolic 63–109; PULSE 69–99; RESP 0–18; TEMP 97.5–97.8; O2SAT 92–99
[~2024-02-05 05:27] MED LIST changes: +ACET325T55 PO; +DICY10CA88 PO; +HYDR-3965 PO; +NITR0.4T51 SL; +OMEP20CA16 PO
[2024-02-05] MEDS: tranexamic acid inj. 1,000 MG in normal saline IV soln 100ML IV ONE (05:30)
[2024-02-05] MEDS ORDERED: Cefazolin 3 GM/100ML NS IVPB 100 ML IV ONE (05:30)
[2024-02-05] MEDS: vancomycin 1,000mg inj ONE (06:42)
[2024-02-05] MEDS: gelatin sponge, absorbable (Gelfoam 100) sponge TP ONE (06:42)
[2024-02-05] MEDS: Thrombin (Bovine) 5,000 unit vial TP ONE (06:42)
[2024-02-05] MEDS: ringers solution, lacted 1,000 ML IV SCH (06:48)
[2024-02-05] MEDS: famotidine 20mg tablet PO ONE (06:48)
[2024-02-05] MEDS: cefazolin 2gm/D5W 100mL 100 ML IV ONE (06:49)
[2024-02-05] MEDS: methylene blue (5mg/ml) 50mg/10ml ampul IV ONE (06:57)
[2024-02-05] MEDS ORDERED: fentaNYL /PF 50mcg/ml 5ml ampule ONE (07:12)
[2024-02-05] MEDS ORDERED: midazolam 1 mg/ML 2ml injection ONE (07:12)
[2024-02-05] MEDS ORDERED: HYDROcodone/acetaminophen 5mg/325mg tablet PO PRN ×2 (07:15→23:20)
[2024-02-05] MEDS ORDERED: magnesium hydroxide 30ml (MOM) UD suspension PO PRN (07:15)
[2024-02-05] MEDS ORDERED: naloxone 0.4 mg/ml inj IV PRN (07:15)
[2024-02-05] MEDS ORDERED: bisacodyl 10mg suppository rectal RC PRN (07:15)
[2024-02-05] MEDS ORDERED: acetaminophen 325mg tablet PO PRN (07:15)
[2024-02-05] MEDS ORDERED: ondansetron/PF 4mg/2ml inj IV PRN (07:15)
[2024-02-05] MEDS ORDERED: sevoflurane 250ml liquid IH ONE (07:15)
[2024-02-05] MEDS ORDERED: HYDROmorphone/PF 0.2 MG/ML SYRINGE IV PRN ×2 (07:20)
[2024-02-05] MEDS ORDERED: fentaNYL/PF 50MCG/1 ML 2ML syringe IV PRN ×2 (07:20)
[2024-02-05] MEDS ORDERED: ringers solution, lacted 1,000 ML IV SCH (07:20)
[2024-02-05] MEDS ORDERED: LIDOcaine 1%/PF 5ML 10 MG/ML VIAL ONE (07:51)
[2024-02-05] MEDS ORDERED: ePHEDrine 50MG/ML INJ. ONE (07:51)
[2024-02-05] MEDS ORDERED: ROPIVAcaine 0.5% (5mg/ml) 30ml vial ONE (07:51)
[2024-02-05] MEDS ORDERED: propofol inj 20 ML IV ONE (07:51)
[2024-02-05] MEDS ORDERED: LIDOcaine 2% (20mg/ml) 5ml vial ONE (07:51)
[2024-02-05] MEDS ORDERED: 0.9 % SODIUM CHLORIDE 10 ML VIAL ONE (07:51)
[2024-02-05] MEDS ORDERED: ondansetron/PF 4mg/2ml inj ONE (07:51)
[2024-02-05] MEDS ORDERED: dexamethasone sod phosphate 4mg/ml inj. ONE (07:51)
[2024-02-05] MEDS: ceFAZolin/D5W- 1GM premix 50 ML IV SCH (08:00)
[2024-02-05] MEDS: acetaminophen 1,000mg/100ml IV 100 ML IV ONE (10:03)
[2024-02-05] MEDS: labetalol 20mg/4ml (5mg/ml) syringe IV PRN (10:21)
[2024-02-05] MEDS: hydrALAZINE 20mg/ml inj. IV PRN (10:37)
[2024-02-05] MEDS: ondansetron/PF 4mg/2ml inj IV PRN (10:57)
[2024-02-05] MEDS: proCHLORperazine 10 MG/2 ml inj IV PRN (11:08)
[2024-02-05] MEDS: potassium cl 20mEq in 1/2 NS 1,000 ML IV SCH (12:57)
[2024-02-05] MEDS: cefazolin 2gm/D5W 100mL 100 ML IV SCH (22:52)
[2024-02-05] MEDS ORDERED: albuterol 2.5 MG/3 ML nebule NEB PRN (23:20)
[2024-02-05] MEDS ORDERED: non-formulary drug (Alendronate Sodium 1 TAB) PO SCH (23:20)
[2024-02-05] MEDS ORDERED: nitroGLYCERIN 0.4mg SUBLingual tab SL PRN (23:30)
[2024-02-06 02:00] VITALS: BP 112/74; PULSE 64; RESP 16; TEMP 96; O2SAT 94
[2024-02-06] MEDS: guaiFENesin 200 MG/10 ML oral syrup UD cup PO PRN (03:50)
[2024-02-06 05:59] LABS: BASOPHILS % (AUTO) 0.1 % (0-1); EOSINOPHILS % (AUTO) 0 % (0-6); HEMATOCRIT 30.6 % (35.0-45.0); HEMOGLOBIN 10.1 g/dl (12.0-16.0); LYMPHOCYTES # (AUTO) 0.6 X10'3 (1.1-4.8); LYMPHOCYTES % (AUTO) 5.9 % (21-51); MEAN CORPUSCULAR HEMOGLOBIN 29.3 PG (27.0-31.0); MEAN CORPUSCULAR HGB CONC 33.1 g/dL (33.0-36.5); MEAN CORPUSCULAR VOLUME 88.6 FL (78-98); MEAN PLATELET VOLUME 6.8 FL (7.4-10.4); MONOCYTES # (AUTO) 0.7 X10'3 (0-0.9); MONOCYTES % (AUTO) 6.4 % (2-12); NEUTROPHILS # (AUTO) 9.4 X10'3 (1.8-7.7); NEUTROPHILS % (AUTO) 87.6 % (42-75); PLATELET COUNT 339 X10'3 (140-440); RED BLOOD COUNT 3.45 X10'6 (4.20-5.60); RED CELL DISTRIBUTION WIDTH 17.6 % (11.5-14.5); WHITE BLOOD COUNT 10.8 X10'3 (4.5-11.0)
[2024-02-06 06:04] LABS: ALANINE AMINOTRANSFERASE 44 U/L (12-78); ALBUMIN 2.7 G/DL (3.4-5.0); ALBUMIN/GLOBULIN RATIO 0.8 (1.1-1.5); ALKALINE PHOSPHATASE 114 IU/L (46-116); ANION GAP 5 (8-16); ASPARTATE AMINO TRANSFERASE 49 U/L (10-37); BILIRUBIN,TOTAL 0.2 MG/DL (0.1-1.0); BLOOD UREA NITROGEN 13 MG/DL (7-18); BUN/CREATININE RATIO 13.3 (10.0-20.0); CALCIUM 8.3 MG/DL (8.5-10.1); CHLORIDE 107 MMOL/L (99-107); CREATININE 0.98 MG/DL (0.40-0.90); GLUCOSE 124 MG/DL (70-104); POTASSIUM 4.5 MMOL/L (3.5-5.1); SODIUM 140 MMOL/L (135-145); TOTAL CARBON DIOXIDE 27.6 MMOL/L (24-32); TOTAL PROTEIN 6.3 G/DL (6.4-8.2); eCRCL 39 ML/MIN; eGFR 57 ML/MIN
[2024-02-06] MEDS: levoTHYROXINE 25mcg tablet PO SCH (07:09)
[2024-02-06] MEDS: HYDROcodone/acetaminophen 5mg/325mg tablet PO PRN (07:11)
[2024-02-06] MEDS: pantoprazole 40mg Tablet.DR PO SCH (09:15)
[2024-02-06] MEDS: losartan 25mg tablet PO SCH (09:17)
[2024-02-06] MEDS: ESCITALOPRAM 10 mg tablet 10 MG TABLET PO SCH (09:18)
[2024-02-06] MEDS: dicyclomine 10 MG capsule PO SCH (09:18)
[2024-02-06 10:00] VITALS: BP 136/75; PULSE 68; RESP 12; TEMP 97.8; O2SAT 96
[2024-02-06 13:25] VITALS: RESP 14
[2024-02-06] MEDS ORDERED: BUDESONIDE IH SCH (21:00)
[2024-02-06] MEDS ORDERED: FORMOTEROL FUMARATE IH SCH (21:00)
== END 2024-02-06 15:25 | disposition home or self-care (01) ==
LOC: PAS 05:27 → ORTHO 4S 05:27 → UNDOADMOB 07:22 → PAS 02-06 15:25
PROVIDERS: ATTEND Specialist
DX: M19.011 Primary osteoarthritis, right shoulder (principal); G89.18 Other acute postprocedural pain; I10 Essential (primary) hypertension; E03.9 Hypothyroidism, unspecified; J44.9 Chronic obstructive pulmonary disease, unspecified; I25.2 Old myocardial infarction; F32.A Depression, unspecified; G43.909 Migraine, unspecified, not intractable, without status migrainosus; J45.909 Unspecified asthma, uncomplicated; M06.9 Rheumatoid arthritis, unspecified; M81.0 Age-related osteoporosis without current pathological fracture; Z86.73 Personal history of transient ischemic attack (TIA), and cerebral infarction without residual deficits; Z87.891 Personal history of nicotine dependence; Z86.711 Personal history of pulmonary embolism; Z79.01 Long term (current) use of anticoagulants; Z79.890 Hormone replacement therapy; Z79.899 Other long term (current) drug therapy; Z90.49 Acquired absence of other specified parts of digestive tract; Z90.710 Acquired absence of both cervix and uterus; Z98.890 Other specified postprocedural states; Z88.1 Allergy status to other antibiotic agents; Z88.5 Allergy status to narcotic agent; Z91.018 Allergy to other foods; Z88.8 Allergy status to other drugs, medicaments and biological substances
CPT/HCPCS: 23430; 23472; 36415; 64415; 71046; 73030; 80053; 82948; 85025; 87081; 97110; 97116; 97161; 97530; C1776; J0131; J0360; J0690; J0780; J1100; J2250; J2405; J2704; J2795; J3010; J3370; J3480; J3490; J7030; J7120; Z7506; Z7508; Z7512; 76000; A4615; A4618; A6449; A6455; A7000; C1758; G0378; Q9968

== ENCOUNTER 2025-02-13 15:00 | Emergency (ER) | payer BC, MEDICAID ==
[~2025-02-13] VITALS: Ht 149.9 cm; Wt 56.7 kg
[~2025-02-13 15:00] MED LIST changes: +ALB0.5UD IH
[2025-02-13] MEDS ORDERED: DIAZ5TAB PO (15:28)
--- NOTE | 2025-02-13 15:32 | Physician Documentation ---
History of Present Illness ~ Chief Complaint: Anxiety Stated Complaint: SI Time Seen by MD: 15:25 Primary Medical Doctor: [facility] Debbie Rueda HPI Patient is a very pleasant 69-year-old female that reports to the emergency department for evaluation of anxiety. Patient reports that her is attempting to take away her alimony and that is how she survives. Patient reports that she has not been able to sleep for the last several nights has been incredibly anxious. Patient presents with extreme anxiety here in the triage room today. Patient denies chest pain shortness of breath chest discomfort chest pressure nausea vomiting fever chills or confusion at this time. Patient reports that she has no desire to harm herself but she feels very anxious. Patient reports that she has a meeting with an inspector floor sub assembly on Sunday. Patient denies any other symptoms at this time. Medication Reconciliation Allergies: Coded Allergies: lactose (Verified Allergy, Intermediate, ABDOMINAL CRAMPING, 04/28/24) clonidine (Verified Allergy, Unknown, DROPS HER BP DRASTICALLY PER PT, 04/28/24) erythromycin base (Unverified Allergy, Unknown, 04/28/24) meperidine HCl (Unverified Allergy, Unknown, 04/28/24) avocado (Verified Adverse Reaction, Severe, IN BED FOR DAYS AND WEAK, 04/28/24) strawberry (Verified Adverse Reaction, Severe, SINUS SWELL , 04/28/24) levofloxacin (Verified Adverse Reaction, Intermediate, LEG PAIN, 03/27/23) morphine (Unverified Adverse Reaction, Unknown, NAUSEA, 03/27/23) Uncoded Allergies: STRAWBERRIES (Allergy, Unknown, 08/30/17) MUSHROOMS (Adverse Reaction, Intermediate, SWELLING IN EYES, 07/17/11) Scheduled Alendronate Sodium (Alendronate Sodium), 1 TAB PO Q7D, (Reported) Apixaban (Eliquis), 5 MG PO BID, (Reported) Budesonide/Formoterol Fumarate (Budesonide-Formoterol 160-4.5), 1 PUFF PO HS, (Reported) Dicyclomine Hcl* (Bentyl*), 1 CAP PO BID, (Reported) Escitalopram Oxalate (Escitalopram Oxalate), 1 TAB PO DAILY, (Reported) Levothyroxine Sodium (Levothyroxine Sodium), 1 TAB PO DAILY, (Reported) Losartan Potassium (Losartan Potassium), 1 TAB PO DAILY, (Reported) Omeprazole (Omeprazole), 1 CAP PO DAILY, (Reported) Scheduled PRN Acetaminophen (Acetaminophen), 1 TAB PO Q8H PRN for pain, (Reported) Albuterol (Albuterol), 2 PUFFS PO Q4H PRN for SOB or wheezing, (Reported) Albuterol Sulfate Nebs* (Proventil Nebs*), 2.5 MG IH Q4H PRN for SOB or wheezing, (Reported) Hydrocodone Bit/Acetaminophen 5/325 MG (Leeper 5/325 MG), 1 TAB PO Q8H PRN for pain, (Reported) Nitroglycerin SL* (Nitrostat SL*), 1 TAB SL Q5MIN PRN for chest pain, (Reported) Past Medical History Past Medical History: Coronary Artery Disease, High Cholesterol, Hypertension, Asthma, Bronchitis, COPD, *GI/HEPATOBILIARY*, Hepatitis A, Inflammatory Bowel Dz, Pancreatitis, Hypothyroidism, Rheumatoid Arthritis, Depression Past Surgical History: cholecystectomy, hysterectomy, orthopedic surgeries, tonsillectomy, tubal ligation, other Patient History: FH: hypertension FHx: hyperlipidemia Other Past Family History: No history of venous thromboembolisms Alcohol Use: None Drug Use: none Lives In: Home Occupation: retired Review of Systems ROS As stated above in the HPI, otherwise all systems are reviewed and negative. Physical Exam Vital Signs: Temperature: 97.0, Source: Temporal, Heart Rate: 79, Respiratory Rate: 22, BP: 123/60, Pulse Oximetry: 98, Weight: 56.700 Oxygen Flow Rate: 0 Physical Exam VITALS: Reviewed and as above. GENERAL: Alert, no apparent distress. HEENT: Normocephalic, atraumatic, PERRL, EOMI, dry mucosa, no erythema RESPIRATORY: Lungs clear, normal breath sounds, no respiratory distress. CHEST: No accessory muscle use, no retractions CV: Regular rate, rhythm, no edema, no murmur, No: JVD GI: Soft, non-tender, bowels sounds present, no rebound, guarding, or rigidity BACK: No CVA tenderness, or swelling MUSCULOSKELETAL No deformities, no edema SKIN: Warm and dry, no rash NEURO: Oriented x4, No motor or sensory deficit PSYCH: Normal mood and affect, no agitation Progress Results/Orders Results/Orders Vital Signs 02/13/25 15:09 Temp 97.0 Pulse 79 Resp 22 B/P (MAP) 123/60 Pulse Ox 98 O2 Flow Rate 0 Medical Decision Making Additional information obtaine: other Findings This patient presents with symptoms consistent with acute anxiety reaction / panic attack. Low suspicion for acute cardiopulmonary process including ACS, PE, or thoracic aortic dissection. Denies any ingestions or any other medical complaints. No evidence of alcohol withdrawal symptoms. Given history and physical presentation not consistent with overt toxidrome, ingestion. Presentation not consistent with a medical emergency at this time. No acute indication for psychiatric consultation (without SI/HI, AH/VH). Cautious return precautions discussed with full understanding. Patient with her primary care provider on Sunday. Patient will return to the emergency room if she has any worsening or recurrent symptoms or any additional concerning symptoms that we discussed here today i.e. chest pain shortness of breath diaphoresis lightheadedness dizziness syncopal episodes change in mentation confusion fever chills nausea vomiting or any other symptoms that we discussed here today. Differential Dx:Considerations: Include: Alcohol abuse, Anxiety, Bipolar disorder, Conversion disorder, Depression, Encephaloathy, Homicidal, Panic disorder, Personality disorder, Schizophrenia, Substance abuse, Suicidal, Other Departure Disposition: 01 HOME / SELF CARE / HOMELESS Impression: Primary Impression: Anxiety Condition: Stable Discharge Instructions: Generalized Anxiety Disorder, Adult, Managing Anxiety, Adult, Panic Attack Additional Instructions: This patient presents with symptoms consistent with acute anxiety reaction / panic attack. Low suspicion for acute cardiopulmonary process including ACS, PE, or thoracic aortic dissection. Denies any ingestions or any other medical complaints. No evidence of alcohol withdrawal symptoms. Given history and ph ysical presentation not consistent with overt toxidrome, ingestion. Presentation not consistent with a medical emergency at this time. No acute indication for psychiatric consultation (without SI/HI, AH/VH). Cautious return precautions discussed with full understanding. Patient with her primary care provider on Sunday. Patient will return to the emergency room if she has any worsening or recurrent symptoms or any additional concerning symptoms that we discussed here today i.e. chest pain shortness of breath diaphoresis lightheadedness dizziness syncopal episodes change in mentation confusion fever chills nausea vomiting or any other symptoms that we discussed here today. Referrals: NO PRIMARY CARE PROVIDER (PCP) Prescriptions Diazepam (Valium) 5 Mg Tablet 1 TAB PO Q12H PRN PRN for anxiety for 5 Days, #10 TAB 0 Refills Prov: KAROLINA ALONZO 02/13/25 Education Educated: Patient Educated regarding: diagnosis, treatment, need for follow up Signature Scribe Signature: A Attestation: Scribed for Emergency,Department by SANDY Ribeiro . 02/13/25 15:36 KAROLINA ALONZO Feb 13, 2025 15:31
== END 2025-02-13 15:49 | disposition home or self-care (01) ==
LOC: ER 15:01
DX: F41.9 Anxiety disorder, unspecified (principal); E78.00 Pure hypercholesterolemia, unspecified; E03.9 Hypothyroidism, unspecified; I10 Essential (primary) hypertension; I25.10 Atherosclerotic heart disease of native coronary artery without angina pectoris; J44.9 Chronic obstructive pulmonary disease, unspecified; Z87.19 Personal history of other diseases of the digestive system; Z90.710 Acquired absence of both cervix and uterus; Z90.49 Acquired absence of other specified parts of digestive tract; Z88.1 Allergy status to other antibiotic agents; Z88.5 Allergy status to narcotic agent; Z79.899 Other long term (current) drug therapy
CPT/HCPCS: 99283

== ENCOUNTER 2025-03-13 22:01 | Inpatient (IN) | payer BC, MEDICAID ==
[~2025-03-13] VITALS: Ht 149.9 cm; Wt 57.5 kg
[~2025-03-13 22:01] MED LIST changes: +DIAZ5TAB PO; -HYDR-3965 PO
[2025-03-13 23:20] LABS: CREATININE 1.16 MG/DL (0.40-0.90); TOTAL CARBON DIOXIDE 24.7 MMOL/L (24-32); eCRCL 32 ML/MIN; eGFR 47 ML/MIN
[2025-03-13 23:30] LABS: MEAN PLATELET VOLUME 7.4 FL (7.4-10.4); RED CELL DISTRIBUTION WIDTH 19.8 % (11.5-14.5)
[2025-03-13 23:59] LABS: PLATELET ESTIMATE NORMAL
--- NOTE | 2025-03-14 00:17 | Physician Documentation ---
History of Present Illness Chief Complaint: Abdominal Pain Stated Complaint: N/V Time Seen by MD: 00:01 Primary Medical Doctor: [facility] Debbie Rueda HPI 69-year-old female, presenting with a abdominal symptoms and later reports suicidal ideation. She tells me that she ate a package of uncooked hot dogs. She then had a lot of vomiting and diarrhea. This has since resolved. She denies any current abdominal pain or nausea. She tells me that she has been feeling anxious and depressed over the last 1 week. She has been having thoughts of hurting herself. She tells me her plan is to overdose on pills. She denies actually attempting to overdose or to harm herself. She does report a history of depression and anxiety. Medication Reconciliation Allergies: Coded Allergies: lactose (Verified Allergy, Intermediate, ABDOMINAL CRAMPING, 04/28/24) clonidine (Verified Allergy, Unknown, DROPS HER BP DRASTICALLY PER PT, 04/28/24) erythromycin base (Unverified Allergy, Unknown, 04/28/24) meperidine HCl (Unverified Allergy, Unknown, 04/28/24) avocado (Verified Adverse Reaction, Severe, IN BED FOR DAYS AND WEAK, 04/28/24) strawberry (Verified Adverse Reaction, Severe, SINUS SWELL , 04/28/24) levofloxacin (Verified Adverse Reaction, Intermediate, LEG PAIN, 03/27/23) morphine (Unverified Adverse Reaction, Unknown, NAUSEA, 03/27/23) Uncoded Allergies: STRAWBERRIES (Allergy, Unknown, 08/30/17) MUSHROOMS (Adverse Reaction, Intermediate, SWELLING IN EYES, 07/17/11) Scheduled Alendronate Sodium (Alendronate Sodium), 1 TAB PO Q7D, (Reported) Apixaban (Eliquis), 5 MG PO BID, (Reported) Budesonide/Formoterol Fumarate (Budesonide-Formoterol 160-4.5), 1 PUFF PO HS, (Reported) Dicyclomine Hcl* (Bentyl*), 1 CAP PO BID, (Reported) Escitalopram Oxalate (Escitalopram Oxalate), 1 TAB PO DAILY, (Reported) Levothyroxine Sodium (Levothyroxine Sodium), 1 TAB PO DAILY, (Reported) Losartan Potassium (Losartan Potassium), 1 TAB PO DAILY, (Reported) Omeprazole (Omeprazole), 1 CAP PO DAILY, (Reported) Scheduled PRN Acetaminophen (Acetaminophen), 1 TAB PO Q8H PRN for pain, (Reported) Albuterol (Albuterol), 2 PUFFS PO Q4H PRN for SOB or wheezing, (Reported) Albuterol Sulfate Nebs* (Proventil Nebs*), 2.5 MG IH Q4H PRN for SOB or wheezing, (Reported) Diazepam (Valium), 1 TAB PO Q12H PRN PRN for anxiety Nitroglycerin SL* (Nitrostat SL*), 1 TAB SL Q5MIN PRN for chest pain, (Reported) Past Medical History Past Medical History: Coronary Artery Disease, High Cholesterol, Hypertension, Asthma, Bronchitis, COPD, *GI/HEPATOBILIARY*, Hepatitis A, Inflammatory Bowel Dz, Pancreatitis, Hypothyroidism, Rheumatoid Arthritis, Depression Past Surgical History: cholecystectomy, hysterectomy, orthopedic surgeries, tonsillectomy, tubal ligation, other Patient History: FH: hypertension FHx: hyperlipidemia Other Past Family History: No history of venous thromboembolisms Alcohol Use: None Drug Use: none Lives In: Home Occupation: retired Review of Systems Constitutional: Denies: fever Gastrointestinal: Reports: abdominal pain, nausea, vomiting, diarrhea Psychiatric: Reports: depression, anxiety, sleeplessness, suicidal Physical Exam Vital Signs: Temperature: 97.8, Source: Temporal, Heart Rate: 76, Respiratory Rate: 16, BP: 99/51, Pulse Oximetry: 96, Weight: 56.000 Physical Exam General: This is a extremely anxious appearing middle-aged woman, is shaking it appears unable to sit still HEENT: Atraumatic, oropharynx is moist Heart: Regular rate and rhythm, normal-appearing peripheral perfusion Lungs: normal work of breathing, normal oxygen saturation on room air Abdomen: Soft, nondistended, nontender all quadrants, no rebound or guarding Neuro: Alert and oriented Psychiatric: Appears to have severe anxiety, is tremulous and shaky, labile aff ect. She does endorse thoughts of self-harm with a plan Progress Results/Orders Results/Orders Orders - BETZY WOODALL MD Lorazepam Tablet (Ativan Tablet) (03/14/25 00:15) Vital Signs 03/13/25 03/14/25 22:10 00:12 Temp 97.8 Pulse 76 Resp 18 16 B/P (MAP) 99/51 Pulse Ox 96 Laboratory Tests Test 03/13/25 22:46 White Blood Count 7.2 Red Blood Count 2.97 L Hemoglobin 11.4 L Hematocrit 32.2 L Mean Corpuscular Volume 108.4 H Mean Corpuscular Hemoglobin 38.5 H Mean Corpuscular Hemoglobin Concent 35.5 Red Cell Distribution Width 19.8 H Platelet Count 321 Mean Platelet Volume 7.4 Neutrophils (%) (Auto) 84.4 H Lymphocytes (%) (Auto) 10.3 L Monocytes (%) (Auto) 4.4 Eosinophils (%) (Auto) 0.7 Basophils (%) (Auto) 0.2 Neutrophils # (Auto) 6.1 Lymphocytes # (Auto) 0.7 L Monocytes # (Auto) 0.3 Eosinophils # (Auto) 0.0 Basophils # (Auto) 0.0 CBC Comment Platelet Estimate Normal Red Blood Cell Morphology Perf Basophilic Stippling Anisocytosis 2+ Macrocytosis 1+ Sodium Level 145 Potassium Level 4.2 Chloride Level 109 H Carbon Dioxide Level 24.7 Anion Gap 11 Blood Urea Nitrogen 23 H Creatinine 1.16 H Estimated GFR/1.73 m2 47 BUN/Creatinine Ratio 19.8 Glucose Level 123 H Calcium Level 8.8 Total Bilirubin 1.0 Aspartate Amino Transf (AST/SGOT) 22 Alanine Aminotransferase (ALT/SGPT) 17 Alkaline Phosphatase 113 Total Protein 7.1 Albumin 3.7 Globulin 3.4 Albumin/Globulin Ratio 1.1 Lipase 35 Chemistry Comments Medical Decision Making Additional information obtaine: old records Findings Reviewed past ER visits. The patient has had similar visits in the past for suicidal ideation Differential Dx:Considerations: Bowel obstruction, Gastritis/PUD Additional Comments Here in the ED, the patient initially presents reporting abdominal symptoms including vomiting and diarrhea after eating a bunch of hot dogs. At time of my evaluation she denies any current abdominal symptoms and has a benign abdominal exam. She then tells me that she is feeling anxious and suicidal. Mental screening labs are grossly unremarkable, pending urine drug screen. On re- evaluation, she continued to voice suicidal thoughts. The patient is otherwise medically cleared for mental health evaluation. Departure Impression: Primary Impression: Anxiety Additional Impressions: Acute gastroenteritis Suicidal ideations Additional Instructions: Transfer orders for [facility]: At this time there is no evidence of an emergent medical condition that would preclude (admission/transfer) to a psychiatric unit via [facility] protocol for further psychiatric, as well as medical evaluation and treatment. At this time I have no reason to believe that transfer via [facility] would have serious medical compromise in the patient's health. Referrals: NO PRIMARY CARE PROVIDER (PCP) Signature Scribe Signature: celsa Attestation: BETZY Kincaid MD Mar 14, 2025 00:17
[2025-03-14 01:13] LABS: ETHANOL < 10 MG/DL (<10)
[2025-03-14 14:57] LABS: LEUKOCYTE ESTERASE ,URINE LARGE (Neg); NITRITES, URINE NEGATIVE (Neg); OCCULT BLOOD,URINE LARGE (Neg)
[2025-03-14 14:59] LABS: UA COLLECTION TYPE OTHER
[2025-03-14 15:01] LABS: MUCUS STRANDS FEW /LPF (Neg); SQUAMOUS EPITHELIAL CELL,UR MODERATE /LPF (FEW)
[2025-03-14 15:02] LABS: WBC CLUMPS,URINE MODERATE /HPF (NEGATIVE)
[2025-03-14 15:03] LABS: AMORPHOUS URATES 1+
[2025-03-14 15:06] LABS: URINE AMPHETAMINE SCREEN NEGATIVE (Neg); URINE BARBITUATE SCREEN NEGATIVE (Neg); URINE BENZODIAZEPINES SCREEN POSITIVE (Neg); URINE CANNABINOID SCREEN NEGATIVE (Neg); URINE COCAINE SCREEN NEGATIVE (Neg); URINE METHADONE SCREEN NEGATIVE (Neg); URINE OPIATE SCREEN NEGATIVE (Neg); URINE PHENCYCLIDINE SCREEN NEGATIVE (Neg)
[2025-03-15] MEDS: levoTHYROXINE 25mcg tablet PO SCH (07:21)
[2025-03-15] MEDS: pantoprazole 40mg Tablet.DR PO SCH (07:21)
[2025-03-15] MEDS: ESCITALOPRAM 10 mg tablet 10 MG TABLET PO SCH (13:03)
[2025-03-15 15:18] VITALS: BP 131/67; PULSE 71; RESP 16; TEMP 97.4; O2SAT 98
[2025-03-15] MEDS ORDERED: loperamide 2mg capsule PO PRN (16:20)
[2025-03-15 19:00] VITALS: O2SAT 93
[2025-03-15 20:00] VITALS: BP 114/71; PULSE 54; TEMP 96.6; O2SAT 93
[2025-03-16 07:00] VITALS: RESP 14; O2SAT 95
[2025-03-16 08:00] VITALS: BP 88/50; PULSE 56; RESP 14; TEMP 97.5; O2SAT 95
--- NOTE | 2025-03-16 10:56 | HISTORY AND PHYSICAL ---
History & Physical Providers to Complaint, nasal congestion, constipation ~ History of Present Illness Reason for Admit\Complaint: As above History of Present Illness This is a 69-year-old female, with history of multiple medical problems including bipolar disorder, multiple allergy, chronic anxiety, hypertension on medication history of PE on Eliquis at home history of coronary artery disease, COPD, chronic constipation, CHF ejection fraction 62% 2022, hypothyroidism, GERD, complaining of nasal congestion and constipation ; in addition patient is presenting with a abdominal symptoms and later reports suicidal ideation. She tells me that she ate a package of uncooked hot dogs. She then had a lot of vomiting and diarrhea. This has since resolved. She denies any current abdominal pain or nausea. She tells me that she has been feeling anxious and depressed over the last 1 week. She has been having thoughts of hurting herself. She tells me her plan is to overdose on pills. She denies actually attempting to overdose or to harm herself. She does report a history of depression and anxiety. Emergency department patient was evaluated by physician was diagnosed with suicidal ideation, gastroenteritis, decision was made to admit patient to mental health unit, no further complaint or concern. Allergies: Coded Allergies: lactose (Verified Allergy, Intermediate, ABDOMINAL CRAMPING, 04/28/24) clonidine (Verified Allergy, Unknown, DROPS HER BP DRASTICALLY PER PT, 04/28/24) erythromycin base (Unverified Allergy, Unknown, 04/28/24) meperidine HCl (Unverified Allergy, Unknown, 04/28/24) avocado (Verified Adverse Reaction, Severe, IN BED FOR DAYS AND WEAK, 04/28/24) strawberry (Verified Adverse Reaction, Severe, SINUS SWELL , 04/28/24) levofloxacin (Verified Adverse Reaction, Intermediate, LEG PAIN, 03/27/23) morphine (Unverified Adverse Reaction, Unknown, NAUSEA, 03/27/23) Uncoded Allergies: STRAWBERRIES (Allergy, Unknown, 08/30/17) MUSHROOMS (Adverse Reaction, Intermediate, SWELLING IN EYES, 07/17/11) Active prescriptions I reviewed reconciled Home Medications Home Medications Active Valium (Diazepam) 5 Mg Tablet 1 Tab PO Q12H PRN PRN 5 Days Reported Nitrostat SL* (Nitroglycerin) 0.4 Mg Tablet 1 Tab SL Q5MIN PRN MDD 3 TABS IN 15 MIN DISSOLVE ONE TABLET UNDER THE TONGUE EVERY 5 MINUTES NEEDED FOR CHEST PAIN FOR UP TO 3 DOSES IN 15 MINUTS CALL 911 IF NO RELIEF AFTER 2ND DOSE TAKEN Budesonide-Formoterol 160-4.5 (Budesonide/Formoterol Fumarate) 160 Mcg-4.5 Mcg/Actuation Hfa.aer.ad 1 Puff PO HS AT 2300 Omeprazole 20 Mg Capsule.dr 1 Cap PO DAILY AT 1330 Losartan Potassium 25 Mg Tablet 1 Tab PO DAILY AT 1330 Escitalopram Oxalate 10 Mg Tablet 1 Tab PO DAILY AT 1330 Bentyl* (Dicyclomine HCl) 10 Mg Capsule 1 Cap PO BID AT 11:00 AND 2300 Alendronate Sodium 70 Mg Tablet 1 Tab PO Q7D Albuterol 17 Gm Aerosol 2 Puffs PO Q4H PRN Levothyroxine Sodium 50 Mcg Tablet 1 Tab PO DAILY AT 1330 Eliquis (Apixaban) 5 Mg Tablet 5 Mg PO BID AT 1100 AND 2300 Acetaminophen 325 Mg Tablet 1 Tab PO Q8H PRN Proventil Nebs* (Albuterol) 2.5 Mg/0.5 Ml Vial.neb 2.5 Mg IH Q4H PRN Past Medical History Past Medical History As in HPI Past Surgical History Surgical History Comment As in HPI history of shoulder replacement Family History Family History: Family history was reviewed; no changes noted. Past Social History Social History Comment Deny illicit drug abuse tobacco alcohol use live with the family good social support Health Maintenance Health Maintenance Noncontributory ROS ROS Constitutional : no fever , no chills, or weakness. No diaphoresis. Allergic/Immunologic, no lymphadenopathy, no hives, no skin eruptions. Eyes, no recent visual changes, no eye pain, no photophobia. Ears, nose, mouth, throat, no sore throat, no nosebleed, no ear pain. Positive for nasal congestion Cardiovascular, no palpitations, skipped beats, chest pain, no peripheral edema, Respiratory, no dyspnea, orthopnea, cough, hemoptysis, chest wall pain. Gastrointestinal, no abdominal pain, nausea, vomiting, positive for gastroenteritis, constipation : no dysuria, hematuria, pelvic pain, urethral d/c. Endocrine, no polyuria, polydipsia, recent unintentional weight gain or loss. Hematologic/Lymphatic, no petechiae, no enlarged lymph nodes, no bone pain. Integumentary, no rash, no skin lesions, Musculoskeletal, no muscle aches, or pain, no muscle cramps, no recent change in gait Neurological, no dizziness, no headache, no syncope, no paresthesia. Psychiatric, no delusions, visual hallucinations, or hearing hallucinations. ROS - in rest is as in HPI. Exam Vitals: Vital Signs Date Time Temp Pulse Resp B/P (MAP) Pulse Ox O2 Delivery O2 Flow Rate FiO2 03/16/25 07:00 14 95 Room Air 03/15/25 20:00 96.6 54 114/71 (85) 03/14/25 18:09 0 Vital signs, stable ,afebrile. Pulse Oximetry reflects adequate oxygenation. BMI is 24, weight 55 kg General: well developed, well nourished. Awake , alert, and oriented x4, resting comfortably in the bed, in no acute distress . Skin: Warm, dry, no pallor, no rash or petechiae. HEENT: Atraumatic, normocephalic, EOMI, anicteric sclera B; pink conjunctiva; PERRLA, normal oropharynx, moist oral and nasal mucosa. Tympanic membrane , nose , throat clear. Neck: Trachea midline. Supple, full range of motion, no JVD, bruit , hepatojugular reflex , lymphadenopathy or masses, or other lesions Cardiac: Regular rhythm, regular rate no murmurs, rubs, or gallops. Normal S1 and S2, no S3 noticed. PMI is normal. Respiratory: Equal breath sounds bilaterally, no tachypnea; lungs clear to auscultation bilaterally, no wheezing ,rub or rales, or crackles. Chest wall is symmetric and without deformity. No signs of trauma. Chest wall is nontender. No signs of respiratory distress. Resonance is normal upon percussion bilaterally. Gastrointestinal: Abdomen symmetric, non-distended, soft, non-tender, normal bowel sounds x4 quadrant, normoactive, no hepatosplenomegaly , no masses , no bruit, no flank pain bilaterally. No voluntary guarding, rebound, or rigidity. No tenderness to percussion. No pulsatile masses. Equal femoral pulses. No Vilchis's sign or McBurney point tenderness. Back; no CVA tenderness bilaterally, no deformities. Neck and back are without deformity as well. No tenderness noted on palpation of the spinous processes. Spinous processes are midline. Cervical, thoracic, and lumbar paraspinal muscles are not tender and are without spasm. : Deferred by patient Musculoskeletal: Extremities, normal range of motion, non-tender, muscle strength 5/5 x 4. Negative Homans signs bilaterally on lower extremity. Distal pulses full symmetrical, no clubbing, cyanosis , edema. Neurological: Speech is clear, alert, and oriented x 4. No motor or sensory deficit, deep tendon reflexes normal, cerebellar intact. Cranial nerves II-XII intact. Psych: Alert and or appropriate, normal affect. Vascular: Good distal pulses, which are equal x4; capillary refill less than 2 seconds. Lymphatic, no lymphadenopathy. Diagnostic Data Last Recorded Lab Results: [id number] Additional Plan Assessment/plan Bipolar disorder in exacerbation Chronic anxiety in exacerbation Psychiatric conditions treatment per Psychiatric team UTI started on antibiotics Chronic constipation started on laxatives Multiple allergies Additional lab work pending Additional comorbidities, acute gastroenteritis, hypertension, history of PE on Eliquis at home, history of COPD, CHF ejection fraction 62% 2022, hypothyroidism, GERD, Hospitalist team we will follow the patient per hospital protocol Sepsis Screening Reassessment Date: Mar 16, 2025 Date of Service: Mar 16, 2025 Billing Provider: KYLEE YU MD Common Visit Codes: 95739-[id number] INP/OBS CARE (HIGH) KYLEE YU MD Mar 16, 2025 10:56
[2025-03-16] MEDS ORDERED: bisacodyl 5mg tablet.DR PO PRN (11:10)
[2025-03-16] MEDS ORDERED: bisacodyl 10mg suppository rectal RC PRN (11:10)
[2025-03-16] MEDS: FLU VACC TS2025-26(6MOS UP)/PF (FLULAVAL) 45 MCG/0.5 ML SYRINGE IMVAC ONE (13:18)
--- NOTE | 2025-03-16 13:21 | HISTORY AND PHYSICAL ---
History & Physical - Blank History and Physical CHIEF COMPLIANT DANGER TO OTHERS HISTORY OF PRESENT ILLNESS Mariela a 69-year-old female on a 1799 hold for danger to self at [facility] ED referred for a mental health evaluation. The patient presented with abdominal symptoms and later reports suicidal ideation. She tells that she ate a package of uncooked hot dogs. She then had a lot of vomiting and diarrhea. This has since been resolved. She denies any current abdominal pain or nausea. She tells me that she has been feeling anxious and depressed over the last one week. She has been having thoughts of hurting herself. She tells me her plan is to overdose on pills. She denies actually attempting to overdose or to harm her self. CHART REVIEW Pt is a 69 year female who was placed on a 5150 hold for DTS. Pt reproted that came to the ED as seh tried to kill herself by overdosing on prescription medications. SHe not feel safe with herself. She stated she lives alone in her own apartment in [place], [place]. She has 22 steps up to her apartment which she no longer can manage. Pt has a son who lives in [place], [place] who she reported she would like to live closer to. She reported hs is trying to find her some kind of supported housing in [place] so she can be closer to him. Pt reported a lack of local supports, is not connected to mental health services, and demonstrated an excesss of anxiety. Pt does received medications through [facility]. Pt reported. ASSESSMENT The patient was interviewed in observation room. The patient was actively sitting up in wheelchair. The patient endorses her life is all screwed up and she has thoughts of taking a bunch of pills and kill herself. "I feel that way on and off." "I don't feel like I am good for anyone or anything." "If I was gone things would be worry and I wouldn't worry about hurting somebody else." Denies HI. Denies AVH. The patient endorses adequate sleep and food intake. The patient endorses she lives in an apartment with her with 22 steps and she is having trouble getting up and down the stairs and has fallening twice. The patient is stable no acute distress noted. The patient presents as forgetful and depressed. Per staff report patient is medication compliant. Per staff report no abnormal behaviors. Will continue daily assessment and adjusting treatment as needed. Closely monitor behavior and response to medication during hospitalization. Discussed treatment plan with patient. ASE/risks and benefits of chosen treatment. She verbalized understanding and consented to treatment. REVIEW OF LABS WBC 11.3 RBC 4.51 HEMOGLOBIN 12.7 HEMATOCRIT 38.5 PLATELET 268 SODIUM 138 POTASSIUM 3.8 CHLORIDE 104 ANION GAP 8 BUN 11 CREATININE 0.94 EGFR >90 GLUCOSE 109 CALCIUM 8.9 ALBUMIN 3.4 TSH 1.40 URINALYSIS NEGATIVE URINE TOX SCREEN NEGATIVE MENTAL STATUS EXAM APPEARANCE: AVERAGE HEIGHT OBESE MALE. DISHEVELED BLACK SHOULDER LENGTH HAIR. WEARING GREEN SCRUBS. MUSTACHE AND COTO. SPEECH: CIRCUMSTANTIAL, TANGENTIAL EYE CONTACT: AVOIDANT AFFECT: FLAT MOOD: "I FEEL GOOD', IRRITABLE ORIENTATION IMPAIRMENT: YEAR, MONTH, TIME, PLACE MEMORY IMPAIRMENT: NONE ATTENTION: FULL HALLUCINATIONS: NONE SUICIDALITY: NONE DELUSIONS: PARANOID BEHAVIOR: GUARDED, AGITATED JUDGMENT: FAIR INSIGHT: FAIR TREATMENT LEXAPRO 10 MG P.O. DAILY 5150 HOLD-DTS- Patient is unable to formulate a plan to safety. We are still titrating medications to an effective dose while maintaining a therapeutic environment to prevent decompensation and readmission. Monitoring by Staff, Milieu, Group, and Individual counseling as needed -- According to the [place] Suicide Assessment the above named patient is on Q15 MINUTE CHECKS. Total time spent 120 minutes on REVIEW OF Clinical notes [X ] RN notes [X] PCT documentation [X] SW notes Labs [ X] Medications [X] Care trends/care activity [X] Vitals [X] DISCUSSION WITH head banquet waitress [X] Staff SW Treatment Team [X] DISCHARGE UNSURE AT THIS TIME. DISCHARGE HOME ONCE STABLE Past Psychiatric History Past Psychiatric History FIRST PSYCHIATRIC MENTAL HEALTH HOSPITALIZATION Past Medical History Past Medical History SEE MEDICAL H & P Past Surgical History Past Surgical History RIGHT SHOULDER REPLACEMENT GALL BLADDER REMOVED Past Family History Patient History: FH: hypertension FHx: hyperlipidemia No pertinent family history FATHER MOTHER CHILD CHILD Substance Abuse History Substance Abuse History MARIJUANA-DENIES TOBACCO-DENIES ALCOHOL-DENIES ILLECT DRUGS-DENIES Personal History Current Living Situation APARTMENT [facility] Marital & Relationship History .2 CHILDRE.SINGLE Sexual History DEFER Occupational History [employer] Social Activity BORN IN [facility] DROPPED OUT IN 10TH GRADE GREW UP IN THE HOME WITH MOM AND STEPDAD THREE SIBLINGS Religious BUDDHIST Legal History DENIES ANY LEGAL HISTORY History DENIES ANY HISTORY Developmental History Childhood PHYSICAL MOLESTED BY STEP-FATHER VERBAL EMOTIONAL Assessment/Plan Problems/Diagnosis: (1) Depression (2) Suicidal ideations CODING VISIT-PSYCHIATRY Date of Service: Mar 16, 2025 Billing Provider: DOROTHY MARRERO APRN Psych Common Visit Codes: [id number] INP/OBS CARE (High) DOROTHY MARRERO APRN Mar 16, 2025 13:21
[2025-03-16 19:00] VITALS: RESP 14; O2SAT 95
[2025-03-16 20:00] VITALS: BP 92/50; PULSE 64; RESP 14; TEMP 96.8; O2SAT 95
[2025-03-16] MEDS: docusate sod 100mg capsule PO SCH (20:03)
[2025-03-16] MEDS: polyethylene glycol 3350 17gm powd pack PO SCH (20:03)
[2025-03-16] MEDS: oxymetazoline 15 ML nasal spray NS SCH (20:10)
[2025-03-17 07:00] VITALS: RESP 15; O2SAT 94
[2025-03-17 08:00] VITALS: BP 122/62; PULSE 69; RESP 15; TEMP 97.6; O2SAT 94
[2025-03-17] MEDS ORDERED: fluticasone nasal spray 16GM bottle NS SCH (08:00)
[2025-03-17] MEDS: fluticasone nasal spray 16GM bottle NS SCH (08:56)
[2025-03-17 09:12] LABS: HBSAG SCREEN Negative (Negative); HEP B CORE AB, IGM Negative (Negative); HEP B CORE AB, TOT Negative (Negative)
[2025-03-17 14:30] VITALS: RESP 14; O2SAT 95
--- NOTE | 2025-03-17 16:02 | PROGRESS NOTE ---
Progress Note Dictate Providers to CC ~ Central Line/PICC still needed: N\\A Antibiotic Ordered?: No MRSA Education MRSA Education Provided to pt: No Objective Vitals Vital Signs Date Time Temp Pulse Resp B/P (MAP) Pulse Ox O2 Delivery O2 Flow Rate FiO2 03/17/25 08:00 97.6 69 15 122/62 (82) 94 03/17/25 07:00 Room Air 0.0 Lab Results: 03/13/25224503/13/252245 Problem\\Assessment\\Plan Problems/Diagnosis: (1) Depression (2) Suicidal ideations Psychiatrist's Progress Note Date of Service: Mar 17, 2025 Notes CHART REVIEW Pt is a 69 year female who was placed on a 5150 hold for DTS. Pt reproted that came to the ED as seh tried to kill herself by overdosing on prescription medications. SHe not feel safe with herself. She stated she lives alone in her own apartment in [place], [place]. She has 22 steps up to her apartment which she no longer can manage. Pt has a son who lives in [place], [place] who she reported she would like to live closer to. She reported hs is trying to find her some kind of supported housing in [place] so she can be closer to him. Pt reported a lack of local supports, is not connected to mental health services, and demonstrated an excesss of anxiety. Pt does received medications through [facility]. Pt reported. ASSESSMENT The patient was interviewed in observation room. The patient was actively resting in bed with eyes closed. The patient endorses "Good." The patient endorses no worsening mental health symptoms. Denies SI.Denies HI. Denies AVH. The patient endorses adequate sleep and food intake. The patient is stable no acute distress noted. The patient presents as calm and cooperative. Per staff report patient is medication compliant. Per staff report no abnormal behaviors. Will continue daily assessment and adjusting treatment as needed. Closely monitor behavior and response to medication during hospitalization. Results Of any Diagn. Testing REVIEW OF LABS WBC 11.3 RBC 4.51 HEMOGLOBIN 12.7 HEMATOCRIT 38.5 PLATELET 268 SODIUM 138 POTASSIUM 3.8 CHLORIDE 104 ANION GAP 8 BUN 11 CREATININE 0.94 EGFR >90 GLUCOSE 109 CALCIUM 8.9 ALBUMIN 3.4 TSH 1.40 URINALYSIS NEGATIVE URINE TOX SCREEN NEGATIVE Speech: Normal Eye Contact: Normal Motor Activity: Normal Affect: Full Mood: Euthymic Orientation Impairment: None Memory Impairment: None Attention: Normal Hallucinations: None Other: None Suicidality: None Homicidality: None Delusions: None Behavior: Cooperative Insight: Fair Judgment: Fair Treatment LEXAPRO 10 MG P.O. DAILY 5150 HOLD-DTS- Patient is unable to formulate a plan to safety. We are still titrating medications to an effective dose while maintaining a therapeutic environment to prevent decompensation and readmission. Monitoring by Staff, Milieu, Group, and Individual counseling as needed -- According to the [place] Suicide Assessment the above named patient is on Q15 MINUTE CHECKS. Total time spent 50 minutes on REVIEW OF Clinical notes [X ] RN notes [X] PCT documentation [X] SW notes Labs [ X] Medications [X] Care trends/care activity [X] Vitals [X] DISCUSSION WITH coding analyst [X] Staff SW Treatment Team [X] Discharge UNSURE AT THIS TIME. DISCHARGE HOME ONCE STABLE CODING VISIT-PSYCHIATRY Date of Service: Mar 17, 2025 Billing Provider: DOROTHY MARRERO APRN Psych Common Visit Codes: [id number] INP/OBS CARE(Mod) DOROTHY MARRERO APRN Mar 17, 2025 16:02
[2025-03-17 19:00] VITALS: RESP 14; O2SAT 94
[2025-03-17 20:00] VITALS: BP 97/56; PULSE 73; RESP 14; TEMP 97.3; O2SAT 94
[2025-03-18] VITALS (8 sets, daily range): BP systolic 96–106; BP diastolic 53–62; PULSE 72–87; RESP 14–18; TEMP 96.8–97.9; O2SAT 94–99
--- NOTE | 2025-03-18 12:22 | PROGRESS NOTE ---
Progress Note Dictate Providers to CC ~ Central Line/PICC still needed: N\\A Antibiotic Ordered?: No MRSA Education MRSA Education Provided to pt: No Objective Vitals Vital Signs Date Time Temp Pulse Resp B/P (MAP) Pulse Ox O2 Delivery O2 Flow Rate FiO2 03/18/25 10:30 84 14 99 Room Air* 0 21 03/18/25 07:30 96.8 96/53 (67) Lab Results: 03/13/25 2246 Problem\\Assessment\\Plan Problems/Diagnosis: (1) Depression (2) Suicidal ideations Psychiatrist's Progress Note Date of Service: Mar 18, 2025 Notes CHART REVIEW Pt is a 69 year female who was placed on a 5150 hold for DTS. Pt reproted that came to the ED as seh tried to kill herself by overdosing on prescription medications. SHe not feel safe with herself. She stated she lives alone in her own apartment in [place], [place]. She has 22 steps up to her apartment which she no longer can manage. Pt has a son who lives in [place], [place] who she reported she would like to live closer to. She reported hs is trying to find her some kind of supported housing in [place] so she can be closer to him. Pt reported a lack of local supports, is not connected to mental health services, and demonstrated an excesss of anxiety. Pt does received medications through [facility]. Pt reported. ASSESSMENT The patient was interviewed in observation room. The patient was actively sitting up in wheelchair. The patient endorses I'm doing fine.' "I'm feeling okay.' The patient endorses she does not want to return home because she has no one to take care of her. She endorses she was getting help from the neighbors with cooking and cleaning and mobility. Denies SI>Denies HI. Denies AVH. The patient endorses adequate sleep and food intake. The patient is stable no acute distress noted. The patient presents as depressed due to going home alone. Per staff report patient is medication compliant. Per staff report no abnormal behaviors. Will continue daily assessment and adjusting treatment as needed. Closely monitor behavior and response to medication during hospitalization. Results Of any Diagn. Testing REVIEW OF LABS WBC 11.3 RBC 4.51 HEMOGLOBIN 12.7 HEMATOCRIT 38.5 PLATELET 268 SODIUM 138 POTASSIUM 3.8 CHLORIDE 104 ANION GAP 8 BUN 11 CREATININE 0.94 EGFR >90 GLUCOSE 109 CALCIUM 8.9 ALBUMIN 3.4 TSH 1.40 URINALYSIS NEGATIVE URINE TOX SCREEN NEGATIVE Speech: Normal Eye Contact: Normal Motor Activity: Normal Affect: Full Orientation Impairment: None Memory Impairment: None Attention: Normal Hallucinations: None Other: None Suicidality: None Homicidality: None Delusions: None Behavior: Cooperative Insight: Fair Judgment: Fair Treatment LEXAPRO 10 MG P.O. DAILY VOLUNTARY Monitoring by Staff, Milieu, Group, and Individual counseling as needed -- According to the [place] Suicide Assessment the above named patient is on Q15 MINUTE CHECKS. Total time spent 40 minutes on REVIEW OF Clinical notes [X ] RN notes [X] PCT documentation [X] SW notes Labs [ X] Medications [X] Care trends/care activity [X] Vitals [X] DISCUSSION WITH cement worker [X] Staff SW Treatment Team [X] Discharge UNSURE AT THIS TIME. DISCHARGE HOME ONCE STABLE CODING VISIT-PSYCHIATRY Date of Service: Mar 18, 2025 Billing Provider: DOROTHY MARRERO APRN Psych Common Visit Codes: [id number] INP/OBS CARE(Low) DOROTHY MARRERO APRN Mar 18, 2025 12:22
[2025-03-18] MEDS: magnesium hydroxide 30ml (MOM) UD suspension PO PRN (16:41)
--- NOTE | 2025-03-18 17:41 | PROGRESS NOTE- Residence ---
Progress Note - Resident Providers to CC Resident Creating Document: JAMES FOLEY RES ~ Antibiotic Timeout Antibiotic Ordered?: Yes Subjective Patient seen and examined at the bedside today. Patient stated that she is feeling cold and denied any other concerns or complaints at the moment. She stated her mood feels better prior to admission. There were no acute overnight events reported. Objective Vital Signs Date Time Temp Pulse Resp B/P (MAP) Pulse Ox O2 Delivery O2 Flow Rate FiO2 03/18/25 10:30 84 14 99 Room Air* 0 21 03/18/25 07:30 96.8 96/53 (67) Result Diagram: 03/13/25 6526 General: Awake and Alert, no acute distress. HEENT: Conjunctiva pink, Sclera clear, Mucus Membranes moist. Neck: Supple without masses and tenderness. Resp: Unlabored. Lungs clear to auscultation bilaterally. Heart: Regular Rate and rhythm, normal S1 and S2 without murmur, rub or gallop. Abdomen: Soft and non tender no organomegaly Extremities: No cyanosis clubbing or edema. Skin: Warm and Dry. Neurology: No focal motor or sensory deficits. Bilateral upper extremity resting tremors present. Musculoskeletal: Bilateral upper extremities have significant ulnar deviations. Assessment Assessment 69-year-old female with past medical history of coronary artery disease, hyperlipidemia, hypertension, asthma, COPD, hypothyroidism, rheumatoid arthritis, pulmonary embolism [facility] and management of major depressive disorder and suicidal ideation. Plan Plan Major depressive disorder Suicidal ideation The continue management as per psychiatric team. Urinary tract infection Patient is started on Keflex 500 mg t.i.d. for seven days. Follow up with the urine culture. History of pulmonary embolism COPD, not in exacerbation On as needed albuterol q.4 hours. Patient on home Eliquis 5 mg p.o. b.i.d.. Currently not in any respiratory distress. Rheumatoid arthritis Has significant ulnar deviation. Is currently not ambulating well. Physical therapy evaluation and treatment requested. Constipation On Colace 100 b.i.d., MiraLax HS and bisacodyl. Can try bisacodyl suppository as needed for severe constipation. Hypothyroidism On levothyroxine. TSH within normal limits. The hospitalist team we will continue to monitor the patient during the course of her hospitalization. James Foley MD Internal Medicine Resident, PGY-3 Date of Service: Mar 18, 2025 Billing Provider: GIBSON WITT MD,JAMES CHOUDHURY, RES Mar 18, 2025 17:41
[2025-03-18] MEDS: budesonide 0.5mg/2ml UD nebule IH SCH (20:58)
[2025-03-18] MEDS ORDERED: albuterol 2.5 MG/3 ML nebule NEB PRN (21:00)
[2025-03-19 08:00] VITALS: BP 81/41; PULSE 87; RESP 16; TEMP 96.3; O2SAT 99
[2025-03-19 09:58] VITALS: RESP 16; O2SAT 99
[2025-03-19 10:00] VITALS: BP 88/54; PULSE 74
--- NOTE | 2025-03-19 15:41 | PROGRESS NOTE ---
Progress Note Dictate Providers to CC ~ Central Line/PICC still needed: N\\A Antibiotic Ordered?: No MRSA Education MRSA Education Provided to pt: No Objective Vitals Vital Signs Date Time Temp Pulse Resp B/P (MAP) Pulse Ox O2 Delivery O2 Flow Rate FiO2 03/19/25 10:00 74 88/54 (65) 03/19/25 09:58 16 99 Room Air 03/19/25 08:00 96.3 03/18/25 22:20 0 21 Problem\\Assessment\\Plan Problems/Diagnosis: (1) Depression (2) Suicidal ideations Psychiatrist's Progress Note Date of Service: Mar 19, 2025 Notes CHART REVIEW Pt is a 69 year female who was placed on a 5150 hold for DTS. Pt reproted that came to the ED as seh tried to kill herself by overdosing on prescription medications. SHe not feel safe with herself. She stated she lives alone in her own apartment in [place], [place]. She has 22 steps up to her apartment which she no longer can manage. Pt has a son who lives in [place], [place] who she reported she would like to live closer to. She reported hs is trying to find her some kind of supported housing in [place] so she can be closer to him. Pt reported a lack of local supports, is not connected to mental health services, and demonstrated an excesss of anxiety. Pt does received medications through [facility]. Pt reported. ASSESSMENT The patient was interviewed in observation room. The patient was actively resting in bed with eyes closed. The patient endorses I'm doing fine.' "okay.' The patient endorses no worsening mental health symptoms. Denies SI. Denies HI. Denies AVH. The patient endorses adequate sleep and food intake. The patient is stable no acute distress noted. The patient presents as calm and cooperative. Per staff report patient is medication compliant. Per staff report no abnormal behaviors. Will continue daily assessment and adjusting treatment as needed. Closely monitor behavior and response to medication during hospitalization. Results Of any Diagn. Testing REVIEW OF LABS WBC 11.3 RBC 4.51 HEMOGLOBIN 12.7 HEMATOCRIT 38.5 PLATELET 268 SODIUM 138 POTASSIUM 3.8 CHLORIDE 104 ANION GAP 8 BUN 11 CREATININE 0.94 EGFR >90 GLUCOSE 109 CALCIUM 8.9 ALBUMIN 3.4 TSH 1.40 URINALYSIS NEGATIVE URINE TOX SCREEN NEGATIVE Speech: Impoverished Eye Contact: Normal Motor Activity: Normal Affect: Full Orientation Impairment: None Memory Impairment: None Attention: Normal Hallucinations: None Other: None Suicidality: None Homicidality: None Delusions: None Behavior: Cooperative Insight: Fair Judgment: Fair Treatment LEXAPRO 10 MG P.O. DAILY VOLUNTARY Monitoring by Staff, Milieu, Group, and Individual counseling as needed -- According to the [place] Suicide Assessment the above named patient is on Q15 MINUTE CHECKS. Total time spent 40 minutes on REVIEW OF Clinical notes [X ] RN notes [X] PCT documentation [X] SW notes Labs [ X] Medications [X] Care trends/care activity [X] Vitals [X] DISCUSSION WITH heat plant specialist [X] Staff SW Treatment Team [X] Discharge UNSURE AT THIS TIME. DISCHARGE HOME ONCE STABLE CODING VISIT-PSYCHIATRY Date of Service: Mar 19, 2025 Billing Provider: ODROTHY MARRERO APRN Psych Common Visit Codes: [id number] INP/OBS CARE(Low) DOROTHY MARRERO APRN Mar 19, 2025 15:41
[2025-03-19 16:45] VITALS: PULSE 75; RESP 20; O2SAT 96
[2025-03-19 19:00] VITALS: RESP 16; O2SAT 97
[2025-03-19 20:00] VITALS: BP 116/64; PULSE 87; RESP 16; TEMP 98.5; O2SAT 97
[2025-03-19] MEDS: docusate sodium 100mg/10ml UD cup PO SCH (20:41)
[2025-03-19] MEDS: mag hydrox/Alum hydrox/simeth 30ml oral suspension PO PRN (21:47)
[2025-03-20 07:30] VITALS: RESP 16; O2SAT 98
[2025-03-20 08:08] VITALS: BP 90/54; PULSE 87; RESP 18; TEMP 97.3; O2SAT 99
--- NOTE | 2025-03-20 15:05 | PROGRESS NOTE- Residence ---
Progress Note - Resident Providers to CC Resident Creating Document: JAMES FOLEY RES ~ Antibiotic Timeout Antibiotic Ordered?: Yes Subjective Patient seen and examined at the bedside today. She is resting comfortably at the bedside. No overnight events were reported. Objective Vital Signs Date Time Temp Pulse Resp B/P (MAP) Pulse Ox O2 Delivery O2 Flow Rate FiO2 03/20/25 08:08 97.3 87 18 90/54 (66) 99 Room Air 03/19/25 16:45 0 21 General: Awake and Alert, no acute distress. HEENT: Conjunctiva pink, Sclera clear, Mucus Membranes moist. Neck: Supple without masses and tenderness. Resp: Unlabored. Lungs clear to auscultation bilaterally. Heart: Regular Rate and rhythm, normal S1 and S2 without murmur, rub or gallop. Abdomen: Soft and non tender no organomegaly Extremities: No cyanosis clubbing or edema. Skin: Warm and Dry. Neurology: No focal motor or sensory deficits. Bilateral upper extremity resting tremors present. Musculoskeletal: Bilateral upper extremities have significant ulnar deviations. Assessment Assessment 69-year-old female with past medical history of coronary artery disease, hyperlipidemia, hypertension, asthma, COPD, hypothyroidism, rheumatoid arthritis , pulmonary embolism [facility] evaluation and management of major depressive disorder and suicidal ideation. Plan Plan Major depressive disorder Suicidal ideation The continue management as per psychiatric team. Urinary tract infection Patient is started on Keflex 500 mg t.i.d. for seven days. Follow up with the urine culture. History of pulmonary embolism COPD, not in exacerbation On as needed albuterol q.4 hours. Patient on home Eliquis 5 mg p.o. b.i.d.. Currently not in any respiratory distress. Rheumatoid arthritis Has significant ulnar deviation. Is currently not ambulating well. Physical therapy evaluation and treatment requested. Constipation On Colace 100 b.i.d., MiraLax HS and bisacodyl. Can try bisacodyl suppository as needed for severe constipation. Hypothyroidism On levothyroxine. TSH within normal limits. The hospitalist team we will continue to monitor the patient during the course of her hospitalization. James Foley MD Internal Medicine Resident, PGY-3 Date of Service: Mar 20, 2025 Billing Provider: GIBSON WITT MD, SURYA PRATIK, RES Mar 20, 2025 15:05
[2025-03-20 19:00] VITALS: RESP 16; O2SAT 96
[2025-03-20 19:55] VITALS: BP 88/54; PULSE 86; RESP 16; TEMP 98.8; O2SAT 96
[2025-03-20 20:44] VITALS: PULSE 81; RESP 16; O2SAT 94
--- NOTE | 2025-03-20 20:53 | PROGRESS NOTE ---
Progress Note Dictate Providers to CC ~ Progress Note: Admission date: 03/16/25 Status: VOL HPI: Admitted for danger to self present in the emergency department after she attempted suicide, but overdosing a prescription medication. She lives alone in an apartment in [place]- but now has trouble ambulating independently. High a nxiety overwhelmed. States she is here because she has "mental issues" needs a new place to live to be closer to her son. Psychiatric History: Age of initial treatment: Outpatient: [facility] Inpatient: Historical Diagnoses (w/year): Access to firearms: Hx of suicide attempts: Hx of self-harm: Hx of violence: denies Legal hx: denies Historical Psych Medications Substances use history: Social history: HOSPITAL COURSE: Today on Assessment: Psychiatric Medications: Escitalopram Side Effects: Denies No evidence of TD, EPS AIMs: 0 Review of Psychiatric Symptoms: Mood: states she has been feeling depressed "always" Suicide/self-harm: endorses- states she wishes she was Sleep: good sleep while on the unit Appetite: Nausea/vomiting- Energy: tired Anxiety: high because she feels worried about finding a place to live. Irritability: denies Homicidal/Anger: denies Hallucinations/Paranoia: denies Trauma symptoms: denies Symptoms related to substance withdrawal: denies Mental Status Evaluation General Appearance: Casually dressed, well kempt, no apparent distress, appears stated age, emaciated, well-groomed, poorly groomed, malodorous Eye contact: consistent with social norms , intermittent, poor, avoidant Demeanor: cooperative, pleasant, optimistic, defensive, negativistic, guarded, withdrawn, argumentative, distant, hostile, evasive, engaged, does not appear fully aware of their surroundings Orientation: to person, place, time, situation Speech: Appropriate rate/rhythm/volume , verbose, monotone, stuttering, loud, loquacious, pressured/tics/verbal sterotypies, dysfluency, dysprosody Psychomotor Activity: within normal range /tense /agitated/decreased/lethargy/retardation/tics/motor sterotypies Abnormal Body Movements: none observed /tics/fine tremor/coarse tremor Mood: down /de pressed/sad/irritable/content/angry/uneasy/anxious/fe arful/euphoric Affect: Full range /constricted/blunted/flat/labile/expansive Suicidality: denies suicidal ideation /Passive thoughts of /suicidal without actionable plan/suicidal with actionable plan/ Homicidally: denies /endorses passive thoughts/homicidal with specific target/vague threatening statements Thought content: consistent with social norms /paranoia/delusions/ paranoia/grandiose/ideas of reference/obsessive/perseverations/thought broadcasting/ hyper-denominational preoccupation/ sexual preoccupation Thought process: logical, linear /goal-directed/confabulations/loose of associations/flight of ideas/incoherence/circumstantial/disorganized/poverty of thought Thought perceptions: no perceptual disorder noted /auditory hallucinations/visual hallucinations/ depersonalization/derealization Memory: appears intact /impairment notable Attention: appear attentive, spells WORLD forwards and backwards correctly /correct serial subtraction of numbers/preoccupied/distracted Insight: good /fair, poor, accepts taking medication as recommended, accepts having a mental health problem Judgment: good /fair/limited Review of symptoms Denies malaise, other flu like symptoms Denies falls, fatigue, weakness, confusion, dizziness, memory loss Denies tingling/numbness, tremor Denies SOB, chest pain, palpitations, fainting Denies nausea, diarrhea, constipation Denies chronic pain All other systems reviewed negative - Current Medical Problems: UTI COPD Hx of Pulmonary Embolism Rheumatoid arthritis Hypothyroidism Constipation Emesis/Nausea- QAM x2 days Medical History Cardiac HX: Denies TBI Hx: denies Seizure Hx: denies MARCOS Hx: denies - - Diagnoses MDD, recurrent, severe Assessment Based on initial evaluation, including interview and history obtained today, patient appears to meet criteria for MDD, recurrent, severe. It appears that psychiatric admission was primarily driving by difficulties related to her living situation including no longer able to ambulate independently. Will discontinue escitalopram due to nausea/emesis and consider alternative at follow up. - Safety risk: low risk of imminent self-harm, low risk of externalized violent behaviors Plan Discontinue escitalopram 10 mg- thinks its causes nausea/vomiting Continue Q15 min checks Continue Groups/Milieu Engagement Discharge Plan: Care coordination with Son - attempting to find more accommodating housing (financial limitations) [facility] worker- to home with scheduled follow ups for outpatient therapy and medication management Spent approximately 120 minutes reviewing records and test results, assessing and treatment planning, completing care coordination and documenting the encounter. Discussed risks, including possible adverse effects, and benefits of treatment recommendations including no treatment. Voice recognition software may have been used to dictate this note. There may be errors due to use of such software. Reporting of serious errors is appreciated. Antibiotic Ordered?: No Objective Vitals Vital Signs Date Time Temp Pulse Resp B/P (MAP) Pulse Ox O2 Delivery O2 Flow Rate FiO2 03/20/25 19:55 98.8 86 16 88/54 (65) 96 Room Air 03/19/25 16:45 0 21 CODING VISIT-PSYCHIATRY Date of Service: Mar 20, 2025 Billing Provider: LETY ANTONY DNP Psych Common Visit Codes: [id number] INP/OBS CARE(Low) LETY ANTONY DNP Mar 20, 2025 20:53
[2025-03-20 20:54] VITALS: PULSE 74; RESP 16
[2025-03-21] VITALS (8 sets, daily range): BP systolic 100–116; BP diastolic 47–55; PULSE 66–87; RESP 16–18; TEMP 97–97.5; O2SAT 96–100
[2025-03-21] MEDS: albuterol 2.5 MG/3 ML nebule NEB PRN (09:05)
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
[2025-03-22 07:00] VITALS: BP 90/55; PULSE 65; RESP 14; TEMP 96.2; O2SAT 96
[2025-03-22 08:27] VITALS: PULSE 75; RESP 17; O2SAT 96
[2025-03-22 08:35] VITALS: PULSE 89; RESP 17
[2025-03-22 08:41] LABS: MEAN PLATELET VOLUME 7.4 FL (7.4-10.4); RED CELL DISTRIBUTION WIDTH 20.1 % (11.5-14.5)
[2025-03-22 09:10] LABS: EOSINOPHILS % (MANUAL) 6.0 % (0-6); LYMPHOCYTES % (MANUAL) 22.0 % (21-51); MONOCYTES % (MANUAL) 3.0 % (2-12); NEUTROPHILS % (MANUAL) 69.0 % (42-75); PLATELET ESTIMATE NORMAL
[2025-03-22 09:11] LABS: ELLIPTOCYTES FEW
[2025-03-22 09:57] LABS: CREATININE 1.11 MG/DL (0.40-0.90); TOTAL CARBON DIOXIDE 29.3 MMOL/L (24-32); eCRCL 33 ML/MIN; eGFR 49 ML/MIN
[2025-03-22 10:00] VITALS: RESP 14; O2SAT 96
--- NOTE | 2025-03-22 18:08 | PROGRESS NOTE ---
Daily Progress Note Providers to CC ~ Antibiotic Timeout Antibiotic Ordered?: No Subjective Patient was seen in her room in presence of behavioral health nursing staff. Patient is seen mildly anxious but cooperated well no new concerns. Objective Vital Signs Date Time Temp Pulse Resp B/P (MAP) Pulse Ox O2 Delivery O2 Flow Rate FiO2 03/22/25 10:00 14 96 Room Air 03/22/25 08:35 89 0.0 03/22/25 08:27 21 03/22/25 07:00 96.2 90/55 (67) Result Diagram: 03/22/25 0813 03/22/25 0813 General-patient not in any acute distress, awake , chronically ill-appearing, mildly anxious HEENT-atraumatic normocephalic, neck supple without elevated JVD, No lymphadenopathy bilaterally. Eyes-no icterus or pallor seen in eyes Chest-clear to auscultation bilaterally, breathing nonlabored no tachypnea, no wheezing, no crepitation, no crackles. Heart-S1-S2 normal, regular heart rate no murmur Abdomen bowel sounds positive on auscultation, soft nondistended nontender no guarding, no rigidity Skin no active skin rash Neurology-grossly intact, nonfocal awake, cooperated during physical examination Extremity- no pedal edema able to move all 4 extremities/ambulate. Benign essential tremors over hands noticed during exam Problem\Assessment\Plan Major depressive disorder Suicidal ideation The continue management as per psychiatric team. Urinary tract infection Patient is started on Keflex 500 mg t.i.d. for seven days. Follow up with the urine culture. History of pulmonary embolism COPD, not in exacerbation On as needed albuterol q.4 hours. Patient on home Eliquis 5 mg p.o. b.i.d.. Currently not in any respiratory distress. Rheumatoid arthritis Has significant ulnar deviation. Physical therapy evaluation and treatment requested. Constipation On Colace 100 b.i.d., MiraLax HS and bisacodyl. Can try bisacodyl suppository as needed for severe constipation. Hypothyroidism On levothyroxine. TSH within normal limits. Benign essential tremors over hands noticed during exam The hospitalist team we will continue to monitor the patient during the course of her hospitalization. Date of Service: Mar 22, 2025 Billing Provider: CESAR CASH MD Common Visit Codes: [id number] INP/OBS CARE(LOW) CESAR CASH MD Mar 22, 2025 18:08
[2025-03-22 19:00] VITALS: RESP 16; O2SAT 97
[2025-03-22] MEDS: fluticasone nasal spray 16GM bottle NS SCH (19:41)
[2025-03-22 20:00] VITALS: BP 103/57; PULSE 80; RESP 16; TEMP 98.4; O2SAT 98
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
[2025-03-23] VITALS (8 sets, daily range): BP systolic 106–110; BP diastolic 60–71; PULSE 63–90; RESP 14–16; TEMP 97.6–97.7; O2SAT 95–100
--- NOTE | 2025-03-23 14:06 | PROGRESS NOTE ---
Progress Note Dictate Providers to CC ~ Central Line/PICC still needed: N\\A Antibiotic Ordered?: No MRSA Education MRSA Education Provided to pt: No Objective Vitals Vital Signs Date Time Temp Pulse Resp B/P (MAP) Pulse Ox O2 Delivery O2 Flow Rate FiO2 03/23/25 09:21 82 16 Room Air 0.0 03/23/25 09:14 95 21 03/23/25 07:42 97.7 106/71 (83) Lab Results: 03/22/25 0813 03/22/25 0813 Problem\\Assessment\\Plan Problems/Diagnosis: (1) Depression (2) Suicidal ideations Psychiatrist's Progress Note Date of Service: Mar 23, 2025 Notes CHART REVIEW Pt is a 69 year female who was placed on a 5150 hold for DTS. Pt reproted that came to the ED as seh tried to kill herself by overdosing on prescription medications. SHe not feel safe with herself. She stated she lives alone in her own apartment in [place], [place]. She has 22 steps up to her apartment which she no longer can manage. Pt has a son who lives in [place], [place] who she reported she would like to live closer to. She reported hs is trying to find her some kind of supported housing in [place] so she can be closer to him. Pt reported a lack of local supports, is not connected to mental health services, and demonstrated an excesss of anxiety. Pt does received medications through [facility]. Pt reported. ASSESSMENT The patient was interviewed in observation room. The patient was actively sitting in rec room. The patient endorses "okay." The patient endorses no worsening mental health symptoms. Denies SI. Denies HI. Denies AVH. The patient endorses adequate sleep and food intake. The patient is stable no acute distress noted. The patient presents as calm and cooperative. Per staff report patient is medication compliant. Per staff report no abnormal behaviors. Will continue daily assessment and adjusting treatment as needed. Closely monitor behavior and response to medication during hospitalization. Results Of any Diagn. Testing REVIEW OF LABS WBC 11.3 RBC 4.51 HEMOGLOBIN 12.7 HEMATOCRIT 38.5 PLATELET 268 SODIUM 138 POTASSIUM 3.8 CHLORIDE 104 ANION GAP 8 BUN 11 CREATININE 0.94 EGFR >90 GLUCOSE 109 CALCIUM 8.9 ALBUMIN 3.4 TSH 1.40 URINALYSIS NEGATIVE URINE TOX SCREEN NEGATIVE Speech: Normal Eye Contact: Normal Motor Activity: Normal Affect: Full Orientation Impairment: None Memory Impairment: None Attention: Normal Hallucinations: None Other: None Suicidality: None Homicidality: None Delusions: None Behavior: Cooperative Insight: Fair Judgment: Fair Treatment LEXAPRO 10 MG P.O. DAILY MIRTAZAPINE 15MG PO QHS VOLUNTARY Monitoring by Staff, Milieu, Group, and Individual counseling as needed -- According to the [place] Suicide Assessment the above named patient is on Q15 MINUTE CHECKS. Total time spent 40 minutes on REVIEW OF Clinical notes [X ] RN notes [X] PCT documentation [X] SW notes Labs [ X] Medications [X] Care trends/care activity [X] Vitals [X] DISCUSSION WITH group fitness instructor [X] Staff SW Treatment Team [X] Discharge UNSURE AT THIS TIME. DISCHARGE HOME ONCE STABLE CODING VISIT-PSYCHIATRY Date of Service: Mar 23, 2025 Billing Provider: DOROTHY MARRERO APRN Psych Common Visit Codes: [id number] INP/OBS CARE(Low) DOROTHY MARRERO APRN Mar 23, 2025 14:06
[2025-03-24] VITALS (8 sets, daily range): BP systolic 90–117; BP diastolic 58–72; PULSE 67–98; RESP 16–20; TEMP 97.2–97.3; O2SAT 95–98
[2025-03-24] MEDS: ondansetron 4mg rapidly disintigrating tab PO PRN (17:47)
--- NOTE | 2025-03-24 18:53 | PROGRESS NOTE- Residence ---
Progress Note - Resident Providers to CC Resident Creating Document: FLORENCE PAULSON, ANÍBAL ~ Central Line/PICC still needed: No Pérez-Non Protocol Pérez Indications Met/Not Met: F/C Indications Not Met Antibiotic Timeout Antibiotic Ordered?: No Subjective Patient resting comfortably at bedside. She has no acute medical complaints. Objective Vital Signs Date Time Temp Pulse Resp B/P (MAP) Pulse Ox O2 Delivery O2 Flow Rate FiO2 03/24/25 09:20 70 20 Room Air 0.0 21 03/24/25 09:12 95 03/24/25 08:55 97.3 117/72 (87) Result Diagram: 03/22/25 0813 03/22/25812 General: Awake and Alert, no acute distress. HEENT: Conjunctiva pink, Sclera clear, Mucus Membranes moist. Resp: Unlabored. Lungs clear to auscultation bilaterally. Heart: Regular Rate and rhythm, normal S1 and S2, grade 2/5 pansystolic murmur heard Abdomen: Soft and non tender no organomegaly Extremities: No cyanosis,clubbing or edema. Skin: Warm and Dry. Assessment Assessment 69-year-old female with past medical history of coronary artery disease, hyperlipidemia, hypertension, asthma, COPD, hypothyroidism, rheumatoid arthritis, pulmonary embolism is admitted in the [facility] for evaluation and management of major depressive disorder and suicidal ideation. Plan Plan Major depressive disorder Suicidal ideation Continue management as per psychiatric team. Urinary tract infection Completed treatment with Keflex on 03/23/2025 History of pulmonary embolism COPD, not in exacerbation On as needed albuterol q.4 hours. Patient on home Eliquis 5 mg p.o. b.i.d.. Currently not in any respiratory distress. Rheumatoid arthritis Has significant ulnar deviation. Is currently not ambulating well. Outpatient evaluation for DMARDS Current pain management as needed Tylenol Constipation On Colace 100 b.i.d., MiraLax HS and bisacodyl. Can try bisacodyl suppository as needed for severe constipation. Hypothyroidism On levothyroxine. TSH within normal limits. The hospitalist team we will continue to monitor the patient during the course of her hospitalization. Florence Paulson PGY3, Internal medicine resident Patient was seen, examined and discussed with the attending MD, Dr. Mora Date of Service: Mar 24, 2025 Billing Provider: MEHUL MORA MD Common Visit Codes: [id number] INP/OBS CARE(MOD) FLORENCE PAULSON, RES Mar 24, 2025 18:53 MEHUL MORA MD Mar 25, 2025 06:41
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
[2025-03-25 07:00] VITALS: BP 92/62; PULSE 70; RESP 14; TEMP 98.1; O2SAT 97
[2025-03-25] MEDS ORDERED: MIRT-87 PO (08:49)
[2025-03-25] MEDS ORDERED: ESCI-8 PO (08:49)
[2025-03-25 09:47] VITALS: PULSE 76; PULSE 79; RESP 16; RESP 20; O2SAT 98
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
== END 2025-03-26 06:07 | disposition home or self-care (01) | DRG 885 ==
LOC: ER 22:01 → UNDOADMIN 03-15 13:30 → ADULT MH 03-15 13:30
PROVIDERS: ADMIT Psychiatry & Neurology Psychiatry; ATTEND Psychiatry & Neurology Psychiatry
PROC: GZHZZZZ Group Psychotherapy (ICD-10-PCS; principal; 2025-03-16)
PROC: GZ51ZZZ Individual Psychotherapy, Behavioral (ICD-10-PCS; 2025-03-16)
DX: F33.2 Major depressive disorder, recurrent severe without psychotic features (principal); J44.89 Other specified chronic obstructive pulmonary disease; I11.0 Hypertensive heart disease with heart failure; R45.851 Suicidal ideations; I50.9 Heart failure, unspecified; N39.0 Urinary tract infection, site not specified; Z79.01 Long term (current) use of anticoagulants; E03.9 Hypothyroidism, unspecified; M06.9 Rheumatoid arthritis, unspecified; Z20.822 Contact with and (suspected) exposure to COVID-19; E78.00 Pure hypercholesterolemia, unspecified; F41.9 Anxiety disorder, unspecified; K21.9 Gastro-esophageal reflux disease without esophagitis; Z96.611 Presence of right artificial shoulder joint; F43.10 Post-traumatic stress disorder, unspecified; I25.10 Atherosclerotic heart disease of native coronary artery without angina pectoris; K59.09 Other constipation; K52.9 Noninfective gastroenteritis and colitis, unspecified; Z79.899 Other long term (current) drug therapy; Z91.018 Allergy to other foods; Z90.710 Acquired absence of both cervix and uterus; Z86.711 Personal history of pulmonary embolism
CPT/HCPCS: 36415; 80053; 80305; 80320; 81001; 82248; 83036; 83690; 84443; 85007; 85008; 85025; 86704; 86705; 87081; 87088; 87340; 87811; 92508; 92616; 94640; 94760; 97161; 97530; 99285; Q0177